=== PATIENT | male | born 1980 | race Two or more races ===

== ENCOUNTER 2021-10-09 11:27 | Emergency (ER) | payer OTHER, SELFPAY ==
--- NOTE | ~2021-10-09 | XR_ITS ---
EXAMINATION: XR CHEST CLINICAL INFORMATION: Chest pain COMPARISON: Previous chest x-ray January 2019 TECHNIQUE: Frontal view of the chest was obtained. FINDINGS: No significant abnormality is noted involving the heart, lungs, mediastinum, bony thorax or soft tissues. XR/XR chest 1V IMPRESSION: Unremarkable examination.
[2021-10-09 11:33] VITALS: BP 137/89; PULSE 84; RESP 18; TEMP 37.1; O2SAT 100; BMI 29.0
--- NOTE | 2021-10-09 11:37 | ECG_ITS ---
Test Reason : CP WHEN FULL Blood Pressure : / mmHG Vent. Rate : 093 BPM Atrial Rate : 093 BPM P-R Int : 142 ms QRS Dur : 080 ms QT Int : 338 ms P-R-T Axes : 075 073 057 degrees QTc Int : 420 ms Normal sinus rhythm Normal ECG When compared with ECG of 07-FEB-2009 21:50, ST elevation now present in Inferior leads Referred By: Generic ED Physician Electronically Signed By:AMELIE BARRERA MD
[2021-10-09 12:47] LABS: MANUAL DIFF FLAG NO
[2021-10-09 12:49] LABS: Basophils Percent Auto 0.2 % (0-2); Eosinophils Absolute Auto 0.1 X10*3/uL (0.0-0.4); Eosinophils Percent Auto 0.9 % (0-4); Hematocrit 45.7 % (42.0-52.0); Hemoglobin 15.3 g/dl (14.0-18.0); Imm Gran Abs Auto 0.02 X10*3/uL (0.00-0.03); Imm Gran Pct Auto 0.3 % (0.0-0.4); Lymphocytes Absolute Auto 1.9 X10*3/uL (1.2-4.9); Lymphocytes Percent Auto 28.2 % (20-40); Mean Corpuscular HGB Conc 33.5 g/dl (31.0-36.0); Mean Corpuscular Hemoglobin 29.2 pg (27.0-33.0); Mean Corpuscular Volume 87.2 fL (80.0-98.0); Mean Platelet Volume 9.2 fL (9.4-12.4); Monocytes Absolute Auto 0.5 X10*3/uL (0.1-1.2); Monocytes Percent Auto 7.5 % (2-11); Neutrophils Absolute Auto 4.1 x10*3/uL (2.0-8.3); Neutrophils Percent Auto 62.9 % (45-73); Platelet Count 281 X10*3/uL (160-400); Red Blood Count 5.24 X10*6/uL (4.60-5.80); Red Cell Distribution Width 12.7 % (11.0-16.0); White Blood Count 6.6 X10*3/uL (4.8-10.8)
[2021-10-09 13:07] LABS: Troponin-I High Sensitivity < 3.5 ng/L (<3.5-35.0)
[2021-10-09 13:43] LABS: Anion Gap 12 (12-20); Blood Urea Nitrogen 14 mg/dL (9-16); Calcium 10.1 mg/dL (8.4-10.2); Carbon Dioxide 27 mmol/L (22-29); Chloride 104 mmol/L (96-108); Creatinine Clr Calc Pharmacy 116.1; Estimated Glomerular Filt Rate > 60; Glucose Random 83 mg/dL (60-115); Potassium 4.7 mmol/L (3.3-5.1); Sodium 138 mmol/L (135-145)
--- NOTE | 2021-10-09 15:14 | ED_ITS ---
HPI - Arrhythmia/Palpitations General Chief Complaint: Arrhythmia/Palpitations Stated Complaint: Irregular heart beat while eating.. Time Seen by Provider: 10/09/21 15:14 Source: patient Mode of arrival: ambulatory Limitations: no limitations History of Present Illness HPI narrative: 41 years old male came in for evaluation of feeling palpitation after eating. 41-year-old male who just moved back to [place] from [place] after temporary moved to [place], while patient was in [place] and a been feeling ab dominal pain patient seek medical attention many times for further evaluation, was recommended for the patient to have colonoscopy. Patient lately been feeling palpitation and skipping heartbeat more after he is eating. No chest pain, no shortness of breath. Related Data Previous Rx's Medication Instructions Recorded citalopram 20 mg tablet 20 mg PO DAILY #30 tab 11/08/20 clonazepam 0.5 mg tablet 0.5 mg PO BID PRN #15 tab 11/08/20 dicyclomine 10 mg capsule 10 mg PO QID PRN #90 cap 10/03/21 fluticasone propionate 50 2 spray INTRANASAL DAILY 30 Days 10/03/21 mcg/actuation nasal #16 g spray,suspension (Allergy Relief (fluticasone)) loratadine 10 mg tablet (Allergy 10 mg PO DAILY #90 tab 10/03/21 Relief (loratadine)) Allergies Allergy/AdvReac Type Severity Reaction Status Date / Time diphenhydramine AdvReac Unknown UNKNOWN Verified 10/03/21 13:53 [From BENADRYL] Review of Systems Review of Systems: All other systems are reviewed and are negative Constitutional: Reports as per HPI and Reports no additional constitutional complaints Eyes: Reports as per HPI and Reports no additional eye complaints Reports system reviewed and no additional complaints, except as documented Cardiovascular: Reports as per HPI and Reports no additional cardiovascular complaints Respiratory: Reports as per HPI and Reports no additional respiratory complaints Gastrointestinal: Reports as per HPI and Reports no additional gastrointestinal complaints Genitourinary: Reports no additional female genitourinary complaints Musculoskeletal: Reports no additional musculoskeletal complaints Skin/Breast: Reports system reviewed and no additional complaints, except as docu Psychiatric: Reports no additional psychiatric complaints Endocrine: Reports no additional endocrine complaints Hematologic/Lymphatic: Reports no additional hematologic/lymphatic complaints Allergic/Immunologic: Reports no additional allergic/immunologic complaints Reports system reviewed and no additional complaints, except as documented and Reports Abnormal speech present PMFSH Past Medical History Medical History (Updated 10/09/21 @ 15:16 by Merritt An MD) Colon spasm High cholesterol Surgical History No pertinent past surgical history Family History Family History Father Sepsis Myocardial infarction Mother HTN (hypertension) Hypothyroidism Brother HTN (hypertension) Sister No problems noted. Sister No problems noted. Maternal Grandfather Heart problem Maternal Grandmother Heart problem Diabetes mellitus Paternal Grandmother No problems noted. Paternal Grandfather No problems noted. Social History Social History Advance Directives: No Advance Directives Information Provided: No Physical Exam Vital Signs: Vital Signs: Last Vital Signs Temp 98.7 F 10/09/21 11:33 Pulse 84 10/09/21 11:33 Resp 18 10/09/21 11:33 BP 137/89 10/09/21 11:33 Pulse Ox 100 10/09/21 11:33 BMI result Body Mass Index 29.0 Vital signs have been reviewed as appeared to be correct. Blood pressure normal. Heart rate normal. Respiration rate normal. Temperature normal. Oxygen saturation normal. Appearance: Alert. Oriented X3. No acute distress. Anxious Head: Normal external exam. Normocephalic. Atraumatic. No Wilburn signs noted. No raccoon eyes noted Eyes: PERRLA. EOMI. Conjunctiva and sclera normal. Eyelids normal. ENT: TM's Normal. Pharynx normal. Uvula midline. Moist mucous membranes. No trismus noted. No drooling noted. No muffled voice noted. Neck: Normal inspection. Neck supple. FROM. No adenopathy. Thyroid Normal. No meningeal signs. No neck mass noted. CVS: Normal heart rate and rhythm. Heart sound normal. No murmurs noted. Pulses normal throughout. Respiratory: No respiratory distress. Painless inspiration. Breath sounds normal. No wheezes/rales/rhonchi noted. Chest nontender. No accessory muscle usage noted or decreased air movement noted. Abdomen: Soft and nontender. Bowel sounds normal in all 4 quadrants. No distention noted. No organomegaly noted. No visible injury noted. Back: No CVA tenderness. Full range of motion noted. Skin: Skin warm and dry. Normal skin color. Normal skin turgor. No rashes/lesions/lacerations noted. Extremities: No lower extremity edema. Extremities exhibit normal range of motion. Extremities nontender. Neuro: Oriented X 3. Cranial nerve exam: II-XII are grossly intact No motor deficit. No sensory deficit. Reflexes normal. Course Course Course Narrative: Assessment and plan. 41 years old male came in with intermittent palpitation but no chest pain, patient has unremarkable labs and chest x-ray and EKG is not revealing, negative history of consuming caffeine. As discussed with the patient everything is unremarkable today need no acute em ergent medical intervention, but patient will need to follow-up with roofing sales representative for further evaluation and possible Holter monitor, patient also will be referred to GI as recommended to get colonoscopy done. MDM - Arrhythmia/Palpitations Medical Records Attestation: I reviewed the patient's medical records. Lab Data Attestation: I reviewed the patient's lab results. Result diagrams: 10/09/21 12:33 10/09/21 12:33 Labs: Lab Results 10/09/21 10/09/21 10/09/21 Range/Units 12:33 12:33 12:33 WBC 6.6 (4.8-10.8) X10*3/uL RBC 5.24 (4.60-5.80) X10*6/uL Hgb 15.3 (14.0-18.0) g/dl Hct 45.7 (42.0-52.0) % MCV 87.2 (80.0-98.0) fL MCH 29.2 (27.0-33.0) pg MCHC 33.5 (31.0-36.0) g/dl RDW 12.7 (11.0-16.0) % Plt Count 281 (160-400) X10*3/uL MPV 9.2 L (9.4-12.4) fL Immature Gran % (Auto) 0.3 (0.0-0.4) % Neut % (Auto) 62.9 (45-73) % Lymph % (Auto) 28.2 (20-40) % [place] % (Auto) 7.5 (2-11) % Eos % (Auto) 0.9 (0-4) % Baso % (Auto) 0.2 (0-2) % Lymph # (Auto) 1.9 (1.2-4.9) X10*3/uL [place] # (Auto) 0.5 (0.1-1.2) X10*3/uL Eos # (Auto) 0.1 (0.0-0.4) X10*3/uL Baso # (Auto) 0.0 (0.0-0.2) X10*3/uL Abs Immat Gran (auto) 0.02 (0.00-0.03) X10*3/uL Absolute Neuts (auto) 4.1 (2.0-8.3) x10*3/uL Absolute Nucleated RBC 0.000 (0.0-0.012) X10*3/uL Nucleated RBC % (auto) 0.0 (0.0-0.2) /100WBC Sodium 138 (135-145) mmol/L Potassium 4.7 (3.3-5.1) mmol/L Chloride 104 (96-108) mmol/L Carbon Dioxide 27 (22-29) mmol/L Anion Gap 12 (12-20) BUN 14 (9-16) mg/dL Creatinine 0.82 (0.5-1.4) mg/dL Estim Creat Clear Calc 116.1 Estimated GFR > 60 Random Glucose 83 (60-115) mg/dL Calcium 10.1 (8.4-10.2) mg/dL Troponin I High Sens < 3.5 (<3.5-35.0) ng/L Imaging Data Chest x-ray: Attestation: I personally reviewed and interpreted this imaging study as follows: Radiologist's impression: Unremarkable examination ECG Data Attestation: I personally reviewed and interpreted this ECG as follows: Interpretation: Normal sinus rhythm at 93 beats per minute, normal axis deviation, normal intervals, no ST-T changes. Discharge Plan Discharge Clinical Impression: Palpitations, Anxiety Patient Disposition: Home, Self-Care Instructions: Heart Palpitations (ED) Prescriptions: No Action clonazepam 0.5 mg tablet 0.5 mg PO BID PRN (Reason: Panick attacks) Qty: 15 0RF citalopram 20 mg tablet 20 mg PO DAILY Qty: 30 0RF dicyclomine 10 mg capsule 10 mg PO QID PRN (Reason: spasms) Qty: 90 0RF fluticasone propionate [Allergy Relief (fluticasone)] 50 mcg/actuation spray,suspension 2 spray intranasal DAILY 30 Days Qty: 16 5RF Rx Instructions: administer into each nostril loratadine [Allergy Relief (loratadine)] 10 mg tablet 10 mg PO DAILY Qty: 90 2RF Referrals: Bambi García MD [Physician] - Ángel White MD [Physician] -
== END 2021-10-09 15:21 | disposition home or self-care (01) ==
PROVIDERS: Emergency Provider Emergency Medicine; PCP Nurse Practitioner Family
DX: I49.9 Cardiac arrhythmia, unspecified (principal); R00.2 Palpitations; F41.1 Generalized anxiety disorder; F43.0 Acute stress reaction
CPT/HCPCS: 36415; 71045; 80048; 84484; 85025; 93005; 99283; 99284

== ENCOUNTER 2021-10-24 07:50 | Emergency (ER) | payer OTHER, SELFPAY ==
--- NOTE | ~2021-10-24 | XR_ITS ---
EXAMINATION: XR CHEST CLINICAL INFORMATION: Hoarseness, shortness of breath. COVID positive. COMPARISON: Chest radiograph dated from 10/09/2021. TECHNIQUE: PA view of the chest was obtained. FINDINGS: No significant abnormality is noted involving the heart, lungs, mediastinum, bony thorax or soft tissues. XR/XR chest 1V IMPRESSION: No significant abnormality. It is important to note that radiographs have decreased sensitivity for the detection of groundglass opacities, and therefore is complications from COVID are suspected correlation with a chest CT is recommended.
[2021-10-24 07:53] VITALS: BP 145/102; PULSE 102; RESP 17; TEMP 36.2; O2SAT 96; BMI 24.3
[2021-10-24 08:29] LABS: COVID-19 Test Positive (Negative); IDNOW Serial# 16C4AD1C
[2021-10-24 08:37] LABS: Influenza A Negative (Negative); Influenza B2 Negative (Negative)
--- NOTE | 2021-10-24 09:25 | ED.URI ---
HPI - URI/Sore Throat General Chief Complaint: Upper Respiratory Symptoms Stated Complaint: covid+(home test) - congestion- SOB Time Seen by Provider: 10/24/21 09:00 Source: patient Mode of arrival: ambulatory Limitations: no limitations History of Present Illness HPI Narrative: 41-year-old male who presents emergency department for evaluation of your eye symptoms and testing COVID positive at home . The patient states he has been sick for approximately 3 days. He states that he has a cough which is mainly nonproductive, he has had chest pain which is mild to moderate intensity, worse with taking deep breath, he states the pain is located throughout his anterior chest. He denied shortness of breath but he does have dyspnea on exertion. States that he had a sore throat but this resolved. He also complains of myalgias arthralgias. He had 1 day of diarrhea which this resolved. He states that his sister is COVID positive and his roommate is also COVID positive. He took a home COVID test today was positive. The patient has not been vaccinated against COVID 19. Related Data Previous Rx's Medication Instructions Recorded citalopram 20 mg tablet 20 mg PO DAILY #30 tab 11/08/20 clonazepam 0.5 mg tablet 0.5 mg PO BID PRN #15 tab 11/08/20 dicyclomine 10 mg capsule 10 mg PO QID PRN #90 cap 10/03/21 fluticasone propionate 50 2 spray INTRANASAL DAILY 30 Days 10/03/21 mcg/actuation nasal #16 g spray,suspension (Allergy Relief (fluticasone)) loratadine 10 mg tablet (Allergy 10 mg PO DAILY #90 tab 10/03/21 Relief (loratadine)) nirmatrelvir 300 mg (150 mg x 2 tab PO BID 5 Days #20 tab 10/24/21 2)-ritonavir 100 mg tablet (EUA) (Paxlovid 300 mg () Allergies Allergy/AdvReac Type Severity Reaction Status Date / Time diphenhydramine AdvReac Unknown UNKNOWN Verified 10/03/21 13:53 [From JUNE] Review of Systems Review of Systems: Yes all other systems are reviewed and are negative Neurologic: Reports Abnormal speech present [facility] Past Medical History [facility] Narrative: Social history: He denies tobacco, alcohol and drug use. Medical History Colon spasm High cholesterol Surgical History No pertinent past surgical history Family History Family History Father Sepsis Myocardial infarction Mother HTN (hypertension) Hypothyroidism Brother HTN (hypertension) Sister No problems noted. Sister No problems noted. Maternal Grandfather Heart problem Maternal Grandmother Heart problem Diabetes mellitus Paternal Grandmother No problems noted. Paternal Grandfather No problems noted. Social History Social History Advance Directives: No Advance Directives Information Provided: No Physical Exam Vital Signs: Vital Signs: Last Vital Signs Temp 97.1 F 10/24/21 07:53 Pulse 102 H 10/24/21 07:53 Resp 17 10/24/21 07:53 BP 145/102 H 10/24/21 07:53 Pulse Ox 96 10/24/21 07:53 BMI result Body Mass Index 24.3 Const: General: cooperative, no acute distress, well developed, alert and awake Orientation/consciousness: oriented to person HEENT: Head: Yes normal to inspection, Yes normocephalic and Yes atraumatic Ears: hearing grossly normal bilaterally General nose exam: Normal external nose present Face and sinus: Yes normal facial exam Mouth: Normal oral and palatal mucosa present, lip normal, tongue normal, oropharynx normal and moist mucous membranes Throat: Yes posterior oropharynx normal, Yes tonsils normal and Yes uvula midline Eyes: General: appearance normal, both eyes and all related structures Eyelids: Yes eyelids normal Conjunctivae: conjunctivae normal Sclerae: sclerae normal Corneas: corneas normal Pupils: Equal, round and reactive pupils present Neck: Neck: Yes normal visual inspection, Yes no lymphadenopathy, Yes trachea midline and Yes supple Thyroid: Thyroid normal Lymphatic: no lymphadenopathy noted Chest: Chest palpation & inspection: normal inspection of the chest and normal palpation of entire chest wall Resp: Effort & Inspection: normal respiratory effort and able to speak in complete sentences Auscultation: clear to auscultation bilaterally Cardio: Rate: regular rate Rhythm: regular rhythm Heart sounds: S1 normal heart sound present, S2 normal heart sound present and no murmurs GI: Inspection: Yes normal to inspection Palpation (GI): Soft to palpation, nontender and No hepatosplenomegaly present Auscultation: normal bowel sounds : General: Yes no CVA tenderness Back/Spine/Pelvis: Back: no CVA tenderness Thoracic/Lumbar Spine: thoracic and lumbar spine normal to inspection Skin: General skin exam: no rashes or lesions noted, no erythema and no jaundice Lesions: no lesions Rashes: no rashes Trauma: no lacerations or abrasions Wounds: no wounds Neuro: General: oriented to person, moves all extremities and no focal motor deficits Cranial nerves: Yes Equal, round and reactive pupils present Cognition (Neuro): normal cognition Speech: Abnormal speech present Motor exam (neuro): Motor abnormalities not present Extrem: General: Yes normal to inspection, Yes no pedal edema and Yes no calf tenderness Right upper extremity: normal to inspection Left upper extremity: normal to inspection Right lower extremity: normal to inspection Left lower extremity: normal to inspection Psych: Appearance: grossly normal Mental Status: mental status grossly normal Speech and movement: Normal speech and movement present Affect: normal affect Attitude: cooperative Thought process: Normal thought process present Insight: Good insight present (Psych) Course Course Course Narrative: 41-year-old male who presents emergency department for evaluation upper respiratory tract infection symptoms and a positive COVID-19 test at home. Initial vital signs revealed an elevated blood pressure 140/102, pulse elevated 102 otherwise were unremarkable. Patient's exam was unremarkable with a normal lung exam. COVID-19 test was positive. Patient's chest x-ray revealed no pneumonia. This patient has not been vaccinated for COVID-19 therefore is at higher risk of severe illness from COVID-19 pneumonia. The patient was prescribed Paxlovid. He was advised to stop his fluticason while taking this drug. He was given printed and verbal instructions and discharged home MDM - URI/Sore Throat Lab Data Labs: Lab Results 10/24/21 10/24/21 Range/Units 07:58 07:58 COVID-19 ([facility]) Positive A (Negative) COVID-19 Clin Com See Note Influenza Type A ([facility]) Negative (Negative) Influenza Type B ([facility]ISTERIO) Negative (Negative) Influenza A & B Note See Note Discharge Plan Discharge Clinical Impression: COVID-19 virus infection Patient Disposition: Home, Self-Care Instructions: COVID-19 (Coronavirus Disease 2019) (ED) Additional Instructions: Your chest x-ray was normal, you do do not have pneumonia at this time. Your COVID-19 test was positive. I am prescribing Paxlovid for your COVID infection Take this medication up today. Stop your other medications while taking Paxlovid Follow-up with your doctor in 2 days. Please return to the emergency department if your symptoms get worse or if you develop any symptoms that are concerning to you. Prescriptions: New Paxlovid (EUA) 150 mg x 2- 100 mg tablet 2 tab PO BID 5 Days Qty: 20 0RF Rx Instructions: 2 tabs PO; No Action clonazepam 0.5 mg tablet 0.5 mg PO BID PRN (Reason: Panick attacks) Qty: 15 0RF citalopram 20 mg tablet 20 mg PO DAILY Qty: 30 0RF dicyclomine 10 mg capsule 10 mg PO QID PRN (Reason: spasms) Qty: 90 0RF fluticasone propionate [Allergy Relief (fluticasone)] 50 mcg/actuation spray,suspension 2 spray intranasal DAILY 30 Days Qty: 16 5RF Rx Instructions: administer into each nostril loratadine [Allergy Relief (loratadine)] 10 mg tablet 10 mg PO DAILY Qty: 90 2RF
--- NOTE | 2021-10-24 10:25 | PC.NURSE ---
PT EVALUATED BY LUANN SONI PLAN IS FOR DC HOME. PT AWAKE, ALERT AND ORIENTED X 3. RESP EVEN, EASY AND UNLABORED. DENIES N/V. NO DISTRESS NOTED.
== END 2021-10-24 10:30 | disposition home or self-care (01) ==
PROVIDERS: Emergency Provider Emergency Medicine Emergency Medical Services; PCP Nurse Practitioner Family
DX: U07.1 COVID-19 (principal); R05.9 Cough, unspecified; R06.02 Shortness of breath; Z79.899 Other long term (current) drug therapy
CPT/HCPCS: 36415; 71045; 80048; 84484; 85025; 87502; 87635; 93005; 99283

== ENCOUNTER 2021-10-24 21:36 | Emergency (ER) | payer OTHER, SELFPAY ==
--- NOTE | 2021-10-24 | ECG_ITS ---
Test Reason : PALPITATIONS Blood Pressure : / mmHG Vent. Rate : 079 BPM Atrial Rate : 079 BPM P-R Int : 162 ms QRS Dur : 088 ms QT Int : 382 ms P-R-T Axes : 063 074 045 degrees QTc Int : 438 ms Sinus rhythm with occasional Premature ventricular complexes Otherwise normal ECG When compared with ECG of 09-OCT-2021 12:23, Premature ventricular complexes are now Present Referred By: Generic ED Physician Electronically Signed By:Joshua Mcelroy
--- NOTE | ~2021-10-24 | XR_ITS ---
EXAMINATION: XR CHEST CLINICAL INFORMATION: Covid positive, palpitations COMPARISON: Chest x-ray from earlier today TECHNIQUE: Frontal view of the chest was obtained. FINDINGS: Lung volumes are symmetric. No focal consolidation is seen. No evidence of pneumothorax, pleural effusion, or pulmonary edema. The cardiomediastinal contour is unremarkable. No acute osseous findings are seen. XR/XR chest 1V IMPRESSION: No acute cardiopulmonary findings.
[2021-10-24 22:44] VITALS: BP 146/85; PULSE 84; RESP 18; TEMP 36.8; O2SAT 97; BMI 24.7
[2021-10-24 23:06] LABS: Basophils Percent Auto 0.1 % (0-2); Eosinophils Absolute Auto 0.1 X10*3/uL (0.0-0.4); Eosinophils Percent Auto 1.6 % (0-4); Hematocrit 41.4 % (42.0-52.0); Imm Gran Abs Auto 0.04 X10*3/uL (0.00-0.03); Imm Gran Pct Auto 0.5 % (0.0-0.4); Lymphocytes Absolute Auto 2.4 X10*3/uL (1.2-4.9); Lymphocytes Percent Auto 31.9 % (20-40); MANUAL DIFF FLAG NO; Mean Corpuscular HGB Conc 33.8 g/dl (31.0-36.0); Mean Corpuscular Hemoglobin 29.6 pg (27.0-33.0); Mean Corpuscular Volume 87.5 fL (80.0-98.0); Monocytes Absolute Auto 0.6 X10*3/uL (0.1-1.2); Neutrophils Absolute Auto 4.3 x10*3/uL (2.0-8.3); Neutrophils Percent Auto 57.9 % (45-73); Platelet Count 233 X10*3/uL (160-400); Red Blood Count 4.73 X10*6/uL (4.60-5.80); White Blood Count 7.4 X10*3/uL (4.8-10.8)
[2021-10-24 23:21] LABS: Anion Gap 12 (12-20); Blood Urea Nitrogen 14 mg/dL (9-16); Calcium 9.6 mg/dL (8.4-10.2); Carbon Dioxide 27 mmol/L (22-29); Chloride 104 mmol/L (96-108); Creatinine Clr Calc Pharmacy 106.7; Estimated Glomerular Filt Rate > 60; Glucose Random 136 mg/dL (60-115); Potassium 3.9 mmol/L (3.3-5.1); Sodium 139 mmol/L (135-145)
[2021-10-24 23:25] LABS: Troponin-I High Sensitivity < 3.5 ng/L (<3.5-35.0)
--- NOTE | 2021-10-25 05:06 | ED_ITS ---
HPI - General Adult General Chief complaint: Arrhythmia/Palpitations Stated complaint: rapid heart rate Covid+ Time Seen by Provider: 10/25/21 05:06 Source: patient Mode of arrival: ambulatory Limitations: no limitations History of Present Illness HPI narrative: patient with symptoms for 5 days, turned positive 2 days ago. Patient had been mucinex for multiple days. Patient was put on paxlovid 2 days ago. he is here because he was getting abdominal pain and diarrhea and palpitations. Onset (ago): day(s) Severity: mild Pain Consistency: intermittent Associated symptoms: denies other symptoms Treatments prior to arrival: none Related Data Previous Rx's Medication Instructions Recorded citalopram 20 mg tablet 20 mg PO DAILY #30 tab 11/08/20 clonazepam 0.5 mg tablet 0.5 mg PO BID PRN #15 tab 11/08/20 dicyclomine 10 mg capsule 10 mg PO QID PRN #90 cap 10/03/21 fluticasone propionate 50 2 spray INTRANASAL DAILY 30 Days 10/03/21 mcg/actuation nasal #16 g spray,suspension (Allergy Relief (fluticasone)) loratadine 10 mg tablet (Allergy 10 mg PO DAILY #90 tab 10/03/21 Relief (loratadine)) nirmatrelvir 300 mg (150 mg x 2 tab PO BID 5 Days #20 tab 10/24/21 2)-ritonavir 100 mg tablet (EUA) (Paxlovid 300 mg () Allergies Allergy/AdvReac Type Severity Reaction Status Date / Time diphenhydramine AdvReac Unknown UNKNOWN Verified 10/03/21 13:53 [From ELSAL] Review of Systems Constitutional: Constitutional: Reports no additional constitutional complai nts Eyes: Eyes: Reports no additional eye complaints ENT: Denies dizziness Cardiovascular: Cardiovascular: Reports no additional cardiovascular complaints Respiratory: Respiratory: Reports as per HPI Gastrointestinal: Gastrointestinal: Reports no additional gastrointestinal complaints Musculoskeletal: Musculoskeletal: Reports no additional musculoskeletal complaints Integumentary/Breasts: Skin/Breast: Denies rash Neurologic: Reports system reviewed and no additional complaints, except as documented, Denies dizziness and Denies Sensory deficit (Neuro) Psychiatric: Psychiatric: Denies anxiety PMFSH Past Medical History Medical History Colon spasm High cholesterol Surgical History No pertinent past surgical history Family History Family History Father Sepsis Myocardial infarction Mother HTN (hypertension) Hypothyroidism Brother HTN (hypertension) Sister No problems noted. Sister No problems noted. Maternal Grandfather Heart problem Maternal Grandmother Heart problem Diabetes mellitus Paternal Grandmother No problems noted. Paternal Grandfather No problems noted. Social History Social History Advance Directives: No Advance Directives Information Provided: No Physical Exam ED Vital Signs: Vital Signs - 24 hr 10/24/21 22:44 Temperature 98.2 F Pulse Rate 84 Respiratory Rate 18 Blood Pressure 146/85 H Pulse Oximetry 97 BMI result Body Mass Index 24.7 Const General: healthy appearing Nutritional Appearance: average body habitus Orientation/consciousness: oriented to person and patient oriented x3 Limitations: no limitations HENMT Head: Yes normal to inspection Ears: external ears normal General nose exam: Normal external nose present Mouth: Normal oral and palatal mucosa present and oropharynx normal Throat: Yes posterior oropharynx normal Eyes General: appearance normal, both eyes and all related structures Neck Neck: Yes normal visual inspection Chest Chest palpation & inspection: normal inspection of the chest Resp Auscultation: clear to auscultation bilaterally Cardio Jugular venous distension: no JVD Rate: regular rate Rhythm: regular rhythm Heart sounds: S1 normal heart sound present and S2 normal heart sound present GI Inspection: Yes normal to inspection Palpation (GI): Soft to palpation, nontender and No hepatosplenomegaly present Auscultation: normal bowel sounds General: Yes no CVA tenderness Back/Spine/Pelvis Back: no CVA tenderness Skin General skin exam: no rashes or lesions noted Neuro General: oriented to person and patient oriented x3 Cranial nerves: Yes CN's II-XII intact bilaterally Motor exam (neuro): 5/5 motor strength present throughout Sensory Exam: No Sensory deficit (Neuro) Extrem General: Yes normal to inspection Psych Appearance: grossly normal Course Reevaluation(s) Reevaluation #1: patient looks well, he has isolated PVC on EKG, labs negative will dc homw Time: 05:25 Medical Decision Making Lab Data Result diagrams: 10/24/21 23:01 10/24/21 23:01 Labs: Lab Results 10/24/21 10/24/21 10/24/21 Range/Units 23:01 23:01 23:01 WBC 7.4 (4.8-10.8) X10*3/uL RBC 4.73 (4.60-5.80) X10*6/uL Hgb 14.0 (14.0-18.0) g/dl Hct 41.4 L (42.0-52.0) % MCV 87.5 (80.0-98.0) fL MCH 29.6 (27.0-33.0) pg MCHC 33.8 (31.0-36.0) g/dl RDW 13.0 (11.0-16.0) % Plt Count 233 (160-400) X10*3/uL MPV 9.0 L (9.4-12.4) fL Immature Gran % (Auto) 0.5 H (0.0-0.4) % Neut % (Auto) 57.9 (45-73) % Lymph % (Auto) 31.9 (20-40) % [place] % (Auto) 8.0 (2-11) % Eos % (Auto) 1.6 (0-4) % Baso % (Auto) 0.1 (0-2) % Lymph # (Auto) 2.4 (1.2-4.9) X10*3/uL [place] # (Auto) 0.6 (0.1-1.2) X10*3/uL Eos # (Auto) 0.1 (0.0-0.4) X10*3/uL Baso # (Auto) 0.0 (0.0-0.2) X10*3/uL Abs Immat Gran (auto) 0.04 H (0.00-0.03) X10*3/uL Absolute Neuts (auto) 4.3 (2.0-8.3) x10*3/uL Absolute Nucleated RBC 0.000 (0.0-0.012) X10*3/uL Nucleated RBC % (auto) 0.0 (0.0-0.2) /100WBC Sodium 139 (135-145) mmol/L Potassium 3.9 (3.3-5.1) mmol/L Chloride 104 (96-108) mmol/L Carbon Dioxide 27 (22-29) mmol/L Anion Gap 12 (12-20) BUN 14 (9-16) mg/dL Creatinine 0.98 (0.5-1.4) mg/dL Estim Creat Clear Calc 106.7 Estimated GFR > 60 Random Glucose 136 H D (60-115) mg/dL Calcium 9.6 (8.4-10.2) mg/dL Troponin I High Sens < 3.5 (<3.5-35.0) ng/L Discharge Plan Discharge Clinical Impression: COVID-19 virus infection, Palpitations, Ventricular premature beats Patient Disposition: Home, Self-Care Instructions: COVID-19 (Coronavirus Disease 2019) (ED), Heart Palpitations (ED), Premature Ventricular Contractions (ED) Prescriptions: No Action Paxlovid (EUA) 150 mg x 2- 100 mg tablet 2 tab PO BID 5 Days Qty: 20 0RF Rx Instructions: 2 tabs PO; clonazepam 0.5 mg tablet 0.5 mg PO BID PRN (Reason: Panick attacks) Qty: 15 0RF citalopram 20 mg tablet 20 mg PO DAILY Qty: 30 0RF dicyclomine 10 mg capsule 10 mg PO QID PRN (Reason: spasms) Qty: 90 0RF fluticasone propionate [Allergy Relief (fluticasone)] 50 mcg/actuation spray ,suspension 2 spray intranasal DAILY 30 Days Qty: 16 5RF Rx Instructions: administer into each nostril loratadine [Allergy Relief (loratadine)] 10 mg tablet 10 mg PO DAILY Qty: 90 2RF Referrals: Bala Roman, [employer] [Primary Care Provider] - 1 week
--- NOTE | 2021-10-25 05:23 | PC.NURSE ---
at bedside for primary eval.
== END 2021-10-25 05:34 | disposition home or self-care (01) ==
PROVIDERS: Emergency Provider Emergency Medicine; PCP Nurse Practitioner Family
DX: U07.1 COVID-19 (principal); R00.2 Palpitations; I49.3 Ventricular premature depolarization; Z79.899 Other long term (current) drug therapy
CPT/HCPCS: 36415; 71045; 80048; 84484; 85025; 93005; 99282; 99283

== ENCOUNTER 2021-10-30 10:22 | Outpatient (REF) | payer OTHER, SELFPAY ==
[2021-10-30 10:49] LABS: COVID-19 Test Negative (Negative)
[2021-10-31 14:11] LABS: H Pylori Breath Test Negative (Negative)
== END 2021-10-30 10:23 | disposition home or self-care (01) ==
LOC: HO.LAB 10:22
PROVIDERS: Physician Assistant; Visit Provider Internal Medicine
DX: Z20.822 Contact with and (suspected) exposure to COVID-19 (principal); R14.0 Abdominal distension (gaseous); R00.2 Palpitations; R19.4 Change in bowel habit; R10.9 Unspecified abdominal pain; F41.0 Panic disorder [episodic paroxysmal anxiety]
CPT/HCPCS: 36415; 83013; 87635; 99202; 99211; C9803

== ENCOUNTER 2021-11-20 08:32 | Outpatient (REF) | payer OTHER, SELFPAY ==
--- NOTE | ~2021-11-20 | US_ITS ---
EXAMINATION: US ABDOMEN COMPLETE CLINICAL INFORMATION: Abdominal distension (gaseous) and abdominal pain. COMPARISON: None TECHNIQUE: Real-time imaging of the abdominal viscera. FINDINGS: PANCREAS: Normal. ABDOMINAL AORTA: The proximal, mid, and distal segments are normal in caliber. INFERIOR VENA CAVA: Visualized portions are normal. LIVER: Normal. The liver is normal in size. The liver contour is normal. Parenchymal echogenicity is normal. No focal hepatic lesion. There is no intrahepatic biliary duct dilatation seen. GALLBLADDER: There is a nonmobile small polyp measuring 0.2 x 0.2 cm. The gallbladder wall thickness is 0.2 cm. There is no echogenic sludge, wall thickening or pericholecystic fluid. No echogenic gallstone seen either. COMMON BILE DUCT: Normal in caliber measuring 0.3 cm in diameter. RIGHT KIDNEY: There is an echogenic stone measuring 0.3 x 0.4 x 0.4 cm. No additional echogenic stone seen. There is no caliectasis. No hydronephrosis or focal parenchymal lesions. The kidney measures 12.5 cm in maximum dimension. LEFT KIDNEY: Normal. No hydronephrosis. No renal calculi or focal parenchymal lesions. The kidney measures 11.2 cm in maximum dimension. SPLEEN: Normal. The spleen measures 11.7 cm in maximum dimension. FREE FLUID: None. US/US abdomen complete IMPRESSION: Small nonmobile gallbladder polyp measuring 2 mm. Echogenic right renal calculi measuring 4 mm without caliectasis. Rest of the abdominal ultrasound is unremarkable.
== END 2021-11-20 08:33 | disposition home or self-care (01) ==
LOC: HO.HMGCX 08:32
PROVIDERS: PCP Nurse Practitioner Family; Visit Provider Physician Assistant
DX: R10.9 Unspecified abdominal pain (principal); R14.0 Abdominal distension (gaseous)
CPT/HCPCS: 76700

== ENCOUNTER → 2021-11-22 07:34 | Outpatient (REF) | payer OTHER, SELFPAY ==
--- NOTE | 2021-11-22 07:37 | CA_ITS ---
Transthoracic Echocardiogram Patient (Last, First, Middle): Rola Ocampo, Gender: Male Date of : 1980 Age: 41 Procedure Date: 11/22/2021 Procedure Type: Transthoracic Echocardiogram Location: OP Height: 180.34 cm Weight: 75.75 kg BSA: 1.95 m2 Heart Rate: bpm BP: 120 / 75 mmHg Manufacturing Maintenance Technician: HOLDEN Strauss MD: Charlette Cole BOX TOE MAKERLane Meat Washer: Manoj Hatch MD Symptoms: R00.2 - Palpitations Study Quality: Fair ECG Rhythm: Sinus Conclusions: - Essentially normal study Findings Left Ventricle Normal left ventricular size, thickness, and systolic function. The visually estimated ejection fraction is between 60-65%. Spectral Doppler is indicative of a normal filling pattern. Right Ventricle Normal right ventricular cavity size and systolic function. Atria Both atria are normal in size. There is no evidence of interatrial shunt. Aortic Valve Normal aortic valve structure and function. There is no aortic valve stenosis. There is no aortic valve regurgitation. Mitral Valve Normal mitral valve structure and function. There is trace mitral valve regurgitation. There is no mitral valve stenosis. Pulmonic Valve The pulmonic valve is likely normal. Tricuspid Valve Normal tricuspid valve structure. There is trace tricuspid valve regurgitation. The right ventricular systolic pressure is normal. The right ventricular systolic pressure is 18 mmHg. Normal right atrial pressure. There is no evidence of pulmonary hypertension. Great Vessels All visible segments of the aorta are normal in size. The pulmonary artery was not well visualized. Venous The inferior vena cava is normal in size and collapses greater than 50% with inspiration. Pericardium/Pleural There is no evidence of pericardial effusion. Prior Study Comparison No prior study available for comparison. Measurements 2D Linear Measurements IVSd: 0.91 0.6-0.9/0.6-1.0 cm LVIDd: 4.66 3.9-5.3/4.2-5.9 cm LVIDd Index: 2.39 2.4-3.2/2.2-3.1 cm/m2 LVIDs: 3.14 2.0-3.6 cm LVPWd: 0.88 0.7-1.1 cm LA Diam: 3.60 2.7-3.8/3.0-4.0 cm LAIDs Index: 1.85 1.5-2.3 cm/m2 LV Mass: 173.96 67-162/88-224 g LV Mass Index: 89.21 43-95/49-115 g/m2 LVOT Diam: 2.20 3.0+(-)1.3 cm 2D Systolic Function EF 4C: 62.60 >55% EF 2C: 55.60 >55% Mitral Valve MV Pk E: 0.60 MV PK A: 0.47 MV Decel Time: 439.00 E/A: 1.30 E'Lateral: 9.36 E'Medial: 6.53 E/E' Med: 9.20 E/E' Lat: 6.40 PHT: 129.00 MVA PHT: 1.71 Decel [place]: 1.37 Aortic Valve AoV Pk Janes: 1.20 AoV Mn Janes: 0.93 AoV VTI: 0.25 AoV Pk Grad: 6.00 Aov Mn Grad: 4.00 KENN Cont.VTI: 3.06 LVOT LVOT Pk Janes: 0.92 LVOT Mn Janes: 0.62 LVOT VTI: 0.20 LVOT Pk Grad: 3.00 LVOT Mn Grad: 2.00 LVOT Diam: 2.20 LVOT Area: 3.80 Diastolic Function MV Pk E: 0.60 MV Pk A: 0.47 E/A: 1.30 E'Medial: 6.53 E/E' Med: 9.20 E' Laterial: 9.36 E/E' Lat: 6.40 Right Ventricle TAPSE (mm): 19.10 TVS' Janes: 10.40 Tricuspid Valve TR Pk Janes: 1.91 TR Pk Grad: 15.00 RA Press: 3.00 RVSP: 18.00 Great Vessels Aorta Sinus of Valsalva: 3.13 2.0-3.[address] [place]: 3.16 1.7-3.4 cm Ao Asc: 3.30 2.1-3.4 cm Ao Arch: 2.50 Updated in Other Vendor System with Status of Final Manoj Hatch MD electronically signed on 11/22/2021 12:41:07 PM with status of Final
== END ==
LOC: HO.CARD 07:34
PROVIDERS: Visit Provider Nurse Practitioner Family
DX: R00.2 Palpitations (principal)
CPT/HCPCS: 93306

== ENCOUNTER → 2021-11-23 20:31 | Outpatient (REF) | payer OTHER, SELFPAY | LOC: HO.CARD 20:31 | PROVIDERS: Visit Provider Nurse Practitioner Family | DX: Z13.89 Encounter for screening for other disorder (principal) ==

== ENCOUNTER → 2021-11-27 13:47 | Outpatient (BNVA) | payer OTHER, SELFPAY | PROVIDERS: PCP Nurse Practitioner Family; Referring Provider Nurse Practitioner Family; Visit Provider Physician Assistant | DX: R14.0 Abdominal distension (gaseous) (principal); K82.4 Cholesterolosis of gallbladder; F41.0 Panic disorder [episodic paroxysmal anxiety] | CPT/HCPCS: 99212 ==

== ENCOUNTER → 2021-12-17 13:02 | Outpatient (REF) | payer OTHER, SELFPAY ==
--- NOTE | 2021-12-17 13:07 | ECG_ITS ---
Hook-up date: 2021-12-17 12:21:00 Duration: 25:00:00 Test Indications: PALPITATIONS Medications: [id number] QRS complexes 1 Ventricular ectopics which represent <1 % of total QRS comp. 3 Supraventricular ectopics which represent <1 % of total QRS comp. * Paced QRS complexs which represent % of total QRS comp. VENTRICULAR ECTOPY 1 Isolated 0 Bigeminal Cycles 0 Couplets 0 Runs 0 Beats in Runs * Beats LONGEST at * BPM at :: -- * Beats FASTEST at * BPM at :: -- SUPRAVENTRICULAR ECTOPY 3 Isolated 0 Couplets 0 Runs 0 Beats in Runs * Beats LONGEST at * BPM at :: -- * Beats FASTEST at * BPM at :: -- HEART RATES 44 MIN at 06:10:19 2021-12-18 70 AVG 127 MAX at 12:54:54 2021-12-17 LONGEST RR 1.4480 secs at 05:02:33 2021-12-18 S-T LEVELS Channel 1 - 128 mm at 12:21:00 2021-12-17 - 128 mm at 12:21:00 2021-12-17 Channel 2 - 128 mm at 12:21:00 2021-12-17 - 128 mm at 12:21:00 2021-12-17 Channel 3 - 128 mm at 03:14:01 -- - 128 mm at 03:14:01 Basic rhythm Normal sinus rhythm No long pause or profound bradycardia No dangerous dysrhythm periods Patient reported symptoms correlated with NSR Referred By: Charlette Cole Overread By: AMELIE BARRERA MD
== END ==
LOC: HO.CARD 13:02
PROVIDERS: Visit Provider Nurse Practitioner Family
DX: R00.2 Palpitations (principal); U07.1 COVID-19
CPT/HCPCS: 93226

== ENCOUNTER 2022-01-27 21:58 | Emergency (ER) | payer OTHER, SELFPAY ==
--- NOTE | ~2022-01-27 | CT_ITS ---
EXAMINATION: NONCONTRAST HEAD CT NONCONTRAST MAXILLOFACIAL CT INDICATION INFORMATION: Head/eye injury COMPARISON: 10/24/2007 TECHNIQUE: Separate noncontrast CT examinations of the head and maxillofacial bones were performed. Coronal and sagittal images were created for each examination at the technologist workstation. DOSE LOWERING TECHNIQUES: This CT examination was performed using dose optimization techniques as appropriate, variously including the following: - Automated exposure control - Adjustment of mA and/or kV according to patient size (this includes techniques or standardized protocols for targeted exams were dose is matched to indication/reason for exam; i.e. extremities or head) - Use of iterative reconstruction technique DLP: 954 mGy-cm FINDINGS: Head: There is no evidence of acute intracranial hemorrhage or territorial infarction. No abnormal mass-effect or midline shift is seen. Kel[place] to white matter differentiation is well preserved. No extra-axial fluid collections are identified. The ventricles are normal in size. There is no abnormal attenuation within the brain parenchyma. The osseous structures and soft tissues are normal. The mastoid air cells are well aerated. Maxillofacial: No acute maxillofacial fractures are seen. Left periorbital soft tissue swelling is noted. The frontal, maxillary, ethmoid, and sphenoid sinuses are well aerated. There is leftward deviation of nasal septum. The mandibular condyles are well-seated in the condylar fossa. The orbits otherwise demonstrate a normal appearance bilaterally. The globes are intact, and there are no suspicious findings to suggest retrobulbar hemorrhage. CT/CT facial bones wo con IMPRESSION: No acute intracranial findings. Left periorbital soft tissue swelling without associated fracture.
--- NOTE | ~2022-01-27 | CT_ITS ---
EXAMINATION: NONCONTRAST HEAD CT NONCONTRAST MAXILLOFACIAL CT INDICATION INFORMATION: Head/eye injury COMPARISON: 10/24/2007 TECHNIQUE: Separate noncontrast CT examinations of the head and maxillofacial bones were performed. Coronal and sagittal images were created for each examination at the technologist workstation. DOSE LOWERING TECHNIQUES: This CT examination was performed using dose optimization techniques as appropriate, variously including the following: - Automated exposure control - Adjustment of mA and/or kV according to patient size (this includes techniques or standardized protocols for targeted exams were dose is matched to indication/reason for exam; i.e. extremities or head) - Use of iterative reconstruction technique DLP: 954 mGy-cm FINDINGS: Head: There is no evidence of acute intracranial hemorrhage or territorial infarction. No abnormal mass-effect or midline shift is seen. Kelsey to white matter differentiation is well preserved. No extra-axial fluid collections are identified. The ventricles are normal in size. There is no abnormal attenuation within the brain parenchyma. The osseous structures and soft tissues are normal. The mastoid air cells are well aerated. Maxillofacial: No acute maxillofacial fractures are seen. Left periorbital soft tissue swelling is noted. The frontal, maxillary, ethmoid, and sphenoid sinuses are well aerated. There is leftward deviation of nasal septum. The mandibular condyles are well-seated in the condylar fossa. The orbits otherwise demonstrate a normal appearance bilaterally. The globes are intact, and there are no suspicious findings to suggest retrobulbar hemorrhage. CT/CT head/brain wo con IMPRESSION: No acute intracranial findings. Left periorbital soft tissue swelling without associated fracture.
[2022-01-27 22:08] VITALS: BP 132/84; PULSE 88; RESP 16; TEMP 37; O2SAT 100; BMI 24.4
--- NOTE | 2022-01-27 23:40 | ED_ITS ---
HPI - Wound/Laceration General Chief Complaint: Wound/Laceration Stated Complaint: hit head with tool Time Seen by Provider: 01/27/22 23:32 Source: patient Mode of arrival: ambulatory Limitations: no limitations History of Present Illness HPI narrative: Patient comes to the emergency room complaining of an injury to the left upper eyelid. Patient states that he was at work, patient was trying to drill into a piece of wood above his head. Patient removed the drill, seemed that the drill slipped when he was trying to pull it out, and hit the upper eyelid of his eye exteriorly. Patient denies any visual changes. Patient has a small laceration to the upper eyelid. Patient did not lose consciousness, no blood thinners Related Data Home Medications Medication Instructions Recorded Confirmed loratadine 10 mg tablet 10 mg PO DAILY 11/27/21 11/27/21 Previous Rx's Medication Instructions Recorded dicyclomine 10 mg capsule 10 mg PO QID PRN spasms #90 caps 10/03/21 methylcellulose (laxative) 500 mg 500 mg PO TID #90 tabs 11/27/21 tablet (Citrucel) Allergies Allergy/AdvReac Type Severity Reaction Status Date / Time diphenhydramine AdvReac Unknown UNKNOWN Verified 01/27/22 22:08 [From JUNE] Review of Systems Review of Systems: Constitutional : No Weight loss, No Fever, No Chills, No Night Sweats, No Fatigue, No Malaise ENT/Mouth : No Hearing loss, No Ear Pain, No Nasal Congestion, No Sinus Pain, No Hoarseness, No sore throat, No Rhinorrhea, No Swallowing Difficulty Eyes: No Eye Pain, No Swelling, No Redness, No Foreign Body, No Discharge, No Vision Changes Cardiovascular : No Chest Pain, No SOB, No Dyspnea on Exertion, No Orthopnea, No Edema, No Palpitations Respiratory : No Cough, No Sputum, No Wheezing, No Smoke Exposure, No Dyspnea Gastrointestinal : No Nausea, No Vomiting, No Diarrhea, No Constipation, No abdominal Pain, No Hematochezia, No Melena Genitourinary : no irregular bleeding, No Dysuria, No Urinary Frequency, No Hematuria, No Urinary Incontinence, No Urgency, No Flank Pain, No Urinary Flow Changes, No Hesitancy Musculoskeletal : No joint pain, No Myalgias, No Joint Swelling Skin : Ecchymosis and laceration to the upper eyelid on the left side Neuro : No Weakness, No Numbness, No Paresthesias, No Loss of Consciousness, No Dizziness, No Headache Psych : No Anxiety/Panic, No Depression, No SI/HI/AH/VH, No Social Issues, Heme/Lymph: No Bruising, No Bleeding,No Lymphadenopathy Endocrine : No Polyuria, No Polydipsia, No Temperature Intolerance [facility] Past Medical History Medical History (Updated 01/28/22 @ 01:37 by Kennedi Claros MD) Colon spasm Depression High cholesterol Panic attack Surgical History History of appendectomy History of hernia repair Family History Family History Father Sepsis Myocardial infarction Mother HTN (hypertension) Hypothyroidism Brother HTN (hypertension) Sister No problems noted. Sister No problems noted. Maternal Grandfather Heart problem Maternal Grandmother Heart problem Diabetes mellitus Paternal Grandmother No problems noted. Paternal Grandfather No problems noted. Social History Social History Household Members: None Household Members Other:: - process divorce Alcohol intake: former Year quit: 2019 Patient Tobacco Use Status: Former Tobacco user Years Smoked: 7 +/- Advance Directives: No Advance Directives Information Provided: Yes Current occupational status: unemployed Physical Exam Vital Signs: Vital Signs: Last Vital Signs Temp 98.6 F 01/27/22 22:08 Pulse 88 01/27/22 22:08 Resp 16 01/27/22 22:08 BP 132/84 01/27/22 22:08 Pulse Ox 100 01/27/22 22:08 O2 Del Method 01/27/22 22:08 BMI result Body Mass Index 24.4 Const: Other: Appearance: Alert. Oriented X3. No acute distress. Eyes: Pupils equal, round and reactive to light. There is mild swelling to the upper eyelid exteriorly on the left side, there is a 0.5 cm superficial lacer ation to the eyelid. Patient is able to move the eyes in all directions with normal range of motion and painlessly. Muscular entrapment not suspected ENT: Pharynx normal. Neck: Normal inspection. Neck supple. No lymph nodes noted. No crepitus CVS: Normal heart rate and rhythm. Pulses normal. Normal S1 and S2 Respiratory: No respiratory distress. Breath sounds normal. No Wheezing. No rales Abdomen: Soft and nontender. No rigidity. No distention. Skin: Skin warm and dry. Normal skin color. Normal skin turgor. Extremities: No lower extremity edema. No Lacerations. No Rash Neuro: Oriented X 3. No motor deficit. No sensory deficit. Moving all extremities. No slurred speech. CN 2 through 12 grossly intact Psych: calm, cooperative, normal affect Course Course Course Narrative: Head and facial bones CT pending 01:35: CT scan of the head and facial bones is negative. Patient has no neck pain. Topical Exofin was applied to the outer eyelid, bleeding controlled MDM - Wound/Laceration Imaging Data Head and facial bone CT: Radiologist's impression: Head: There is no evidence of acute intracranial hemorrhage or territorial infarction. No abnormal mass-effect or midline shift is seen. Kelsey to white matter differentiation is well preserved. No extra-axial fluid collections are identified. The ventricles are normal in size. There is no abnormal attenuation within the brain parenchyma. The osseous structures and soft tissues are normal. The mastoid air cells are well aerated. Maxillofacial: No acute maxillofacial fractures are seen. Left periorbital soft tissue swelling is noted. The frontal, maxillary, ethmoid, and sphenoid sinuses are well aerated. There is leftward deviation of nasal septum. The mandibular condyles are well-seated in the condylar fossa. The orbits otherwise demonstrate a normal appearance bilaterally. The globes are intact, and there are no suspicious findings to suggest retrobulbar hemorrhage. CT/CT facial bones wo con IMPRESSION: No acute intracranial findings. Left periorbital soft tissue swelling without associated fracture. Discharge Plan Discharge Clinical Impression: Laceration Patient Disposition: Home, Self-Care Instructions: Laceration (ED) Additional Instructions: Please follow-up with your primary care physician tomorrow. If you have any worsening or new symptoms, please return to the emergency room or call 911 Prescriptions: No Action dicyclomine 10 mg capsule 10 mg PO QID PRN (Reason: spasms) Qty: 90 0RF loratadine 10 mg tablet 10 mg PO DAILY Citrucel 500 mg tablet 500 mg PO TID Qty: 90 5RF
[2022-01-28 03:20] VITALS: BP 120/77; PULSE 70; RESP 16; O2SAT 98
== END 2022-01-28 03:24 | disposition home or self-care (01) ==
PROVIDERS: Emergency Provider Emergency Medicine; PCP Nurse Practitioner Family
DX: S01.112A Laceration without foreign body of left eyelid and periocular area, initial encounter (principal); R51.9 Headache, unspecified; W26.9XXA Contact with unspecified sharp object(s), initial encounter; Y93.9 Activity, unspecified; Y92.9 Unspecified place or not applicable; Y99.0 Civilian activity done for income or pay; Z79.899 Other long term (current) drug therapy; Z87.891 Personal history of nicotine dependence
CPT/HCPCS: 70450; 70486; 99284

== ENCOUNTER 2022-02-19 08:27 | Outpatient (REF) | payer OTHER, SELFPAY ==
[2022-02-19 11:46] LABS: Appearance Urine Clear; Color Urine Yellow; Glucose Urine UA Negative (Negative); Leukocyte Esterase Urine Negative (Negative); Nitrite Urine Negative (Negative); Specific Gravity - Urine <= 1.005 (1.005-1.025); Urine Blood Negative (Negative); Urine Ketones Negative (Negative); Urine Protein Negative (Neg-Trace)
[2022-02-19 11:51] LABS: MANUAL DIFF FLAG NO
[2022-02-19 12:07] LABS: Basophils Percent Auto 0.4 % (0-2); Eosinophils Absolute Auto 0.1 X10*3/uL (0.0-0.4); Hematocrit 48.7 % (42.0-52.0); Imm Gran Abs Auto 0.03 X10*3/uL (0.00-0.03); Imm Gran Pct Auto 0.4 % (0.0-0.4); Lymphocytes Absolute Auto 2.7 X10*3/uL (1.2-4.9); Lymphocytes Percent Auto 34.2 % (20-40); Mean Corpuscular HGB Conc 32.9 g/dl (31.0-36.0); Mean Corpuscular Hemoglobin 29.2 pg (27.0-33.0); Mean Corpuscular Volume 88.9 fL (80.0-98.0); Mean Platelet Volume 9.7 fL (9.4-12.4); Monocytes Absolute Auto 0.6 X10*3/uL (0.1-1.2); Monocytes Percent Auto 7.3 % (2-11); Neutrophils Absolute Auto 4.5 x10*3/uL (2.0-8.3); Neutrophils Percent Auto 56.7 % (45-73); Platelet Count 308 X10*3/uL (160-400); Red Blood Count 5.48 X10*6/uL (4.60-5.80); Red Cell Distribution Width 12.5 % (11.0-16.0); White Blood Count 7.9 X10*3/uL (4.8-10.8)
[2022-02-19 12:26] LABS: Alanine Aminotransferase 25 U/L (0-40); Albumin Level 4.8 g/dL (3.5-5.0); Alkaline Phosphatase 78 U/L (39-117); Anion Gap 14 (12-20); Aspartate Amino Transferase 20 U/L (5-37); Bilirubin Total 0.6 mg/dL (0.0-1.0); Blood Urea Nitrogen 17 mg/dL (9-16); Carbon Dioxide 27 mmol/L (22-29); Chloride 103 mmol/L (96-108); Cholesterol 257 mg/dL; Estimated Glomerular Filt Rate > 60; Glucose Fasting 97 mg/dL (60-99); HDL Cholesterol 40 mg/dL; LDL Cholesterol Calculated 187 mg/dl; Potassium 4.3 mmol/L (3.3-5.1); Sodium 140 mmol/L (135-145); Total Protein 8.1 g/dL (6.5-8.0); Triglycerides 151 mg/dL
[2022-02-19 12:38] LABS: Vitamin D 25-OH Total 40.2 ng/mL (>30)
[2022-02-19 13:03] LABS: Folate 12.8 ng/mL (> or = 4.0); Vitamin B12 818 pg/mL (200-900)
== END 2022-02-19 08:28 | disposition home or self-care (01) ==
LOC: HO.HMGCLDS 08:27
PROVIDERS: PCP Nurse Practitioner Family; Visit Provider Nurse Practitioner Family
DX: Z00.00 Encounter for general adult medical examination without abnormal findings (principal); E56.9 Vitamin deficiency, unspecified
CPT/HCPCS: 36415; 80053; 80061; 81003; 82306; 82607; 82746; 84443; 85025

== ENCOUNTER → 2022-02-26 13:26 | Outpatient (BNVA) | payer OTHER, SELFPAY | PROVIDERS: PCP Nurse Practitioner Family; Referring Provider Nurse Practitioner Family; Visit Provider Physician Assistant | DX: K58.9 Irritable bowel syndrome, unspecified (principal) | CPT/HCPCS: 99212 ==

== ENCOUNTER 2022-06-20 05:09 | Emergency (ER) | payer OTHER, SELFPAY ==
[2022-06-20 05:12] VITALS: BP 131/89; PULSE 70; RESP 16; TEMP 36.1; O2SAT 99; BMI 26.1
--- NOTE | 2022-06-20 05:25 | PC.NURSE ---
this rn assumed care of pt @ 0512. VSS at this time. pt changed in hospital gown. pt resting comfortably on stretcher. Dr Dumont made aware of pt at this time. pt awaiting to be seen by ED provider
--- NOTE | 2022-06-20 05:27 | ED_ITS ---
HPI - General Adult General Chief complaint: Headache Stated complaint: headache, high bp Time Seen by Provider: 06/20/22 05:27 Source: patient Mode of arrival: ambulatory Limitations: no limitations History of Present Illness HPI narrative: Patient woke up from sleep with slight headache in the front checked the blood pressure was 160/95 got worried as has a strong family history of hypertension repeat blood pressure in the ER was 122/80 no nausea vomiting chest pain or palpitation Related Data Previous Rx's Medication Instructions Recorded rosuvastatin 5 mg tablet (Crestor) 5 mg PO BEDTIME #90 tabs 02/21/22 Allergies Allergy/AdvReac Type Severity Reaction Status Date / Time diphenhydramine AdvReac Unknown UNKNOWN Verified 02/26/22 13:28 [From JUNE] Review of Systems Review of Systems: Yes all other systems are reviewed and are negative [facility] Past Medical History Medical History Colon spasm Depression High cholesterol Panic attack Surgical History History of appendectomy History of hernia repair Family History Family History Father Sepsis Myocardial infarction Mother HTN (hypertension) Hypothyroidism Brother HTN (hypertension) Sister No problems noted. Sister No problems noted. Maternal Grandfather Heart problem Maternal Grandmother Heart problem Diabetes mellitus Paternal Grandmother No problems noted. Paternal Grandfather No problems noted. Social History Social History Household Members: None Household Members Other:: - process divorce Housing: House Alcohol intake: former Year quit: 2019 Patient Tobacco Use Status: Former Tobacco user Years Smoked: 7 +/- Smoked in Last 30 Days: No e-Cigarette/Vaping Use: Never Used Second Hand Smoke Exposure: No Use of substances other than those prescribed or required for medical reasons: No Advance Directives: No Advance Directives Information Provided: Yes Current occupational status: unemployed Cognitive needs: No Hearing needs: No Vision needs: No Physical Exam ED Vital Signs: Vital Signs - 24 hr 06/20/22 05:12 Temperature 96.9 F Pulse Rate 70 Respiratory Rate 16 Blood Pressure 131/89 Pulse Oximetry 99 Oxygen Delivery Method Room Air BMI result Body Mass Index 26.1 Appearance: Alert. Oriented X3. No acute distress. Anxious Eyes: PERRLA, No Nystagmus ENT: Pharynx normal. Oral Mucosa moist Neck: Normal inspection. Neck supple. CVS: Normal heart rate and rhythm. Pulses normal. Respiratory: No respiratory distress. Equal air entry bilateral, no wheezing/rales/rhonchi Abdomen: Soft and nontender. Bowel sounds are present, no mass palpable, no CVA tenderness Skin: Skin warm and dry. Normal skin color. Normal skin turgor. Extremities: No lower extremity edema. No calf tenderness Neuro: Oriented X 3. No motor deficit. Medical Decision Making Medical Decision Making MDM Narrative: Patient with anxiety clinically with headache noticed to have slight high blood pressure at home repeat blood pressure was normal patient advise to follow with PCP Discharge Plan Discharge Clinical Impression: Elevated blood pressure reading Patient Disposition: Home, Self-Care Instructions: Hypertension (ED) Additional Instructions: Your blood pressure seems to be normal 122/80 it could be because of headache you had transient high blood pressure Follow-up with PCP Prescriptions: No Action rosuvastatin [Crestor] 5 mg tablet 5 mg PO BEDTIME Qty: 90 0RF
--- NOTE | 2022-06-20 05:44 | PC.NURSE ---
pt ambulatory at discharge. skin pwd. bp 122/80 HR 82. pt provided with discharge packet. pt verbalized understanding of discharge plan
== END 2022-06-20 05:45 | disposition home or self-care (01) ==
PROVIDERS: Emergency Provider Internal Medicine; PCP Nurse Practitioner Family
DX: R51.9 Headache, unspecified (principal); I10 Essential (primary) hypertension; Z87.891 Personal history of nicotine dependence
CPT/HCPCS: 99282; 99284

== ENCOUNTER → 2022-07-03 14:31 | Outpatient (BNVA) | payer OTHER, SELFPAY | PROVIDERS: PCP Nurse Practitioner Family; Referring Provider Nurse Practitioner Family; Visit Provider Nurse Practitioner Family | DX: R00.2 Palpitations (principal) | CPT/HCPCS: 93005; 99212 ==

== ENCOUNTER → 2022-07-18 12:01 | Outpatient (REF) | payer OTHER, SELFPAY ==
--- NOTE | 2022-07-18 12:04 | HM_ITS ---
Conclusion: 1. Patient was monitored for total period of 6 days 2. Baseline was normal sinus rhythm with average heart rate of 75 beats per minute 3. No significant pauses or bradycardia noted 4. Very rare ectopy noted with total of 34 PACs and 4 PVCs noted throughout the entire. Accounting for less than 0.01% of total beats 5. Patient reported 5 events, with reported symptoms of irregular heartbeat correlating with either PACs or PVCs MTDD
== END ==
LOC: HO.CARD 12:01
PROVIDERS: Visit Provider Nurse Practitioner Family
DX: I49.3 Ventricular premature depolarization (principal); R00.2 Palpitations; K40.20 Bilateral inguinal hernia, without obstruction or gangrene, not specified as recurrent
CPT/HCPCS: 93242; 99202

== ENCOUNTER → 2022-07-23 13:09 | Outpatient (BNVA) | payer OTHER, SELFPAY | PROVIDERS: PCP Nurse Practitioner Family; Visit Provider Physician Assistant | DX: K58.9 Irritable bowel syndrome, unspecified (principal) | CPT/HCPCS: 99212 ==

== ENCOUNTER → 2022-08-07 08:05 | Outpatient (BNVA) | payer OTHER, SELFPAY | PROVIDERS: PCP Nurse Practitioner Family; Visit Provider Nurse Practitioner Family | DX: G47.19 Other hypersomnia (principal); G25.81 Restless legs syndrome; G47.52 REM sleep behavior disorder; R06.83 Snoring | CPT/HCPCS: 99202 ==

== ENCOUNTER 2022-08-21 05:13 | Emergency (ER) | payer OTHER, SELFPAY ==
--- NOTE | 2022-08-21 | ECG_ITS ---
Test Reason : SHORTNESS OF BREATH Blood Pressure : / mmHG Vent. Rate : 083 BPM Atrial Rate : 083 BPM P-R Int : 156 ms QRS Dur : 088 ms QT Int : 374 ms P-R-T Axes : 054 072 032 degrees QTc Int : 439 ms Normal sinus rhythm Normal ECG When compared with ECG of 24-OCT-2021 22:47, Premature ventricular complexes are no longer Present Referred By: Generic ED Physician Electronically Signed By:AMELIE BARRERA MD
[2022-08-21 05:22] VITALS: BMI 28.0
[2022-08-21 05:27] VITALS: BP 136/87; PULSE 71; RESP 18; TEMP 36.4; O2SAT 100
[2022-08-21 06:00] LABS: MANUAL DIFF FLAG NO
[2022-08-21 06:03] LABS: Basophils Percent Auto 0.2 % (0-2); Eosinophils Absolute Auto 0.1 X10*3/uL (0.0-0.4); Eosinophils Percent Auto 0.9 % (0-4); Hematocrit 43.9 % (42.0-52.0); Hemoglobin 14.9 g/dl (14.0-18.0); Imm Gran Abs Auto 0.04 X10*3/uL (0.00-0.03); Imm Gran Pct Auto 0.5 % (0.0-0.4); Lymphocytes Absolute Auto 2.7 X10*3/uL (1.2-4.9); Lymphocytes Percent Auto 33.2 % (20-40); Mean Corpuscular HGB Conc 33.9 g/dl (31.0-36.0); Mean Corpuscular Hemoglobin 29.2 pg (27.0-33.0); Mean Corpuscular Volume 85.9 fL (80.0-98.0); Mean Platelet Volume 9.1 fL (9.4-12.4); Monocytes Absolute Auto 0.7 X10*3/uL (0.1-1.2); Monocytes Percent Auto 8.2 % (2-11); Neutrophils Absolute Auto 4.7 x10*3/uL (2.0-8.3); Platelet Count 268 X10*3/uL (160-400); Red Blood Count 5.11 X10*6/uL (4.60-5.80); Red Cell Distribution Width 13.2 % (11.0-16.0); White Blood Count 8.2 X10*3/uL (4.8-10.8)
[2022-08-21 06:15] LABS: Anion Gap 15 (12-20); Blood Urea Nitrogen 22 mg/dL (9-16); Calcium 9.2 mg/dL (8.4-10.2); Carbon Dioxide 23 mmol/L (22-29); Chloride 105 mmol/L (96-108); Creatinine Clr Calc Pharmacy 116.1; Estimated Glomerular Filt Rate > 60; Glucose Random 105 mg/dL (60-115); Potassium 3.9 mmol/L (3.3-5.1); Sodium 139 mmol/L (135-145)
[2022-08-21 06:25] LABS: Troponin-I High Sensitivity < 3.5 ng/L (<3.5-35.0)
[2022-08-21 06:35] VITALS: BP 124/76; PULSE 66; RESP 13; O2SAT 99
--- NOTE | 2022-08-21 07:17 | ED.GENADULT ---
HPI - General Adult General Chief complaint: General Medical Stated complaint: dizziness, confusion Time Seen by Provider: 08/21/22 06:49 Source: patient Mode of arrival: ambulatory Limitations: no limitations History of Present Illness HPI narrative: A 42-year-old male came in for evaluation of racing heart and feeling shortness of breath with dizziness. Patient woke up from sleep feeling anxious, feeling tingling all over his body, palpitation, lightheadedness, and shortness or breath. No fever, no chills. Related Data Home Medications Medication Instructions Recorded Confirmed No Known Home Meds 07/22/22 07/22/22 Allergies Allergy/AdvReac Type Severity Reaction Status Date / Time diphenhydramine AdvReac Unknown UNKNOWN Verified 08/07/22 08:09 [From JUNE] Review of Systems Review of Systems: All other systems are reviewed and are negative Constitutional: Reports as per HPI and Reports no additional constitutional complaints Eyes: Reports as per HPI and Reports no additional eye complaints Reports system reviewed and no additional complaints, except as documented Cardiovascular: Reports as per HPI and Reports no additional cardiovascular complaints Respiratory: Reports as per HPI and Reports no additional respiratory complaints Gastrointestinal: Reports as per HPI and Reports no additional gastrointestinal complaints Genitourinary: Reports no additional female genitourinary complaints Musculoskeletal: Reports no additional musculoskeletal complaints Skin/Breast: Reports system reviewed and no additional complaints, except as docu Psychiatric: Reports no additional psychiatric complaints Endocrine: Reports no additional endocrine complaints Hematologic/Lymphatic: Reports no additional hematologic/lymphatic complaints Allergic/Immunologic: Reports no additional allergic/immunologic complaints Reports system reviewed and no additional complaints, except as documented and Reports Abnormal speech present [facility] Past Medical History Medical History Colon spasm Depression High cholesterol Panic attack Surgical History History of appendectomy History of bilateral inguinal hernia repair (01/26/18) Family History Family History Father Sepsis Myocardial infarction Mother HTN (hypertension) Hypothyroidism Brother HTN (hypertension) Sister Fibromyalgia Sister No problems noted. Maternal Grandfather Heart problem Maternal Grandmother Heart problem Diabetes mellitus Paternal Grandmother No problems noted. Paternal Grandfather No problems noted. Social History Social History Household Members: None Household Members Other:: - process divorce Housing: House Alcohol intake: never Patient Tobacco Use Status: Former Tobacco user Years Smoked: 7 +/- Smoked in Last 30 Days: No e-Cigarette/Vaping Use: Never Used Second Hand Smoke Exposure: No Use of substances other than those prescribed or required for medical reasons: No Advance Directives: No Advance Directives Information Provided: Yes Current occupational status: unemployed Cognitive needs: No Hearing needs: No Vision needs: No Physical Exam ED Vital Signs: Vital Signs - 24 hr 08/21/22 05:27 08/21/22 06:35 Temperature 97.6 F Pulse Rate 71 66 Respiratory Rate 18 13 Blood Pressure 136/87 124/76 Pulse Oximetry 100 99 Oxygen Delivery Method Room Air Room Air BMI result Body Mass Index 28.0 Vital signs have been reviewed as appeared to be correct. Blood pressure normal. Heart rate normal. Respiration rate normal. Temperature normal. Oxygen saturation normal. Appearance: Alert. Oriented X3. No acute distress. Head: Normal external exam. Normocephalic. Atraumatic. No Wilburn signs noted. No raccoon eyes noted Eyes: PERRLA. EOMI. Conjunctiva and sclera normal. Eyelids normal. ENT: TM's Normal. Pharynx normal. Uvula midline. Moist mucous membranes. No trismus noted. No drooling noted. No muffled voice noted. Neck: Normal inspection. Neck supple. FROM. No adenopathy. Thyroid Normal. No meningeal signs. No neck mass noted. CVS: Normal heart rate and rhythm. Heart sound normal. No murmurs noted. Pulses normal throughout. Respiratory: No respiratory distress. Painless inspiration. Breath sounds normal. No wheezes/rales/rhonchi noted. Chest nontender. No accessory muscle usage noted or decreased air movement noted. Abdomen: Soft and nontender. Bowel sounds normal in all 4 quadrants. No distention noted. No organomegaly noted. No visible injury noted. Back: No CVA tenderness. Full range of motion noted. Skin: Skin warm and dry. Normal skin color. Normal skin turgor. No rashes/lesions/lacerations noted. Extremities: No lower extremity edema. Extremities exhibit normal range of motion. Extremities nontender. Neuro: Oriented X 3. Cranial nerve exam: II-XII are grossly intact No motor deficit. No sensory deficit. Reflexes normal. Course Course Course Narrative: 42-year-old male came in with symptoms of anxiety, patient has unremarkable workup in the emergency department today, patient now is asymptomatic. Vital signs stable, will discharge to follow-up with PCP. Medical Decision Making Differential Diagnosis Differential Diagnoses: The differential diagnosis associated with the presentation includes (ACS, dehydration, electrolyte disturbance, anemia, anxiety.) Lab Data MDM Lab Attestation statement: I reviewed the patient's lab results. 08/21/22 05:51 08/21/22 05:51 Labs: Lab Results 08/21/22 08/21/22 08/21/22 Range/Units 05:51 05:51 05:51 WBC 8.2 (4.8-10.8) X10*3/uL RBC 5.11 (4.60-5.80) X10*6/uL Hgb 14.9 (14.0-18.0) g/dl Hct 43.9 (42.0-52.0) % MCV 85.9 (80.0-98.0) fL MCH 29.2 (27.0-33.0) pg MCHC 33.9 (31.0-36.0) g/dl RDW 13.2 (11.0-16.0) % Plt Count 268 (160-400) X10*3/uL MPV 9.1 L (9.4-12.4) fL Immature Gran % (Auto) 0.5 H (0.0-0.4) % Neut % (Auto) 57.0 (45-73) % Lymph % (Auto) 33.2 (20-40) % Gillespie % (Auto) 8.2 (2-11) % Eos % (Auto) 0.9 (0-4) % Baso % (Auto) 0.2 (0-2) % Lymph # (Auto) 2.7 (1.2-4.9) X10*3/uL Gillespie # (Auto) 0.7 (0.1-1.2) X10*3/uL Eos # (Auto) 0.1 (0.0-0.4) X10*3/uL Baso # (Auto) 0.0 (0.0-0.2) X10*3/uL Abs Immat Gran (auto) 0.04 H (0.00-0.03) X10*3/uL Absolute Neuts (auto) 4.7 (2.0-8.3) x10*3/uL Absolute Nucleated RBC 0.000 (0.0-0.012) X10*3/uL Nucleated RBC % (auto) 0.0 (0.0-0.2) /100WBC Sodium 139 (135-145) mmol/L Potassium 3.9 (3.3-5.1) mmol/L Chloride 105 (96-108) mmol/L Carbon Dioxide 23 (22-29) mmol/L Anion Gap 15 (12-20) BUN 22 H (9-16) mg/dL Creatinine 0.91 (0.5-1.4) mg/dL Estim Creat Clear Calc 116.1 Estimated GFR > 60 Random Glucose 105 (60-115) mg/dL Calcium 9.2 D (8.4-10.2) mg/dL Troponin I High Sens < 3.5 (<3.5-35.0) ng/L Independent Interpretation I performed an independent interpretation of an: EKG (Normal sinus rhythm at 83 beats per minutes, normal axis deviation, normal intervals, no ST-T changes.) Radiology Impression Discussion of test interpretation with radiology: I have reviewed the radiologist's reading. Discharge Plan Discharge Clinical Impression: Anxiety Patient Disposition: Home, Self-Care Instructions: Anxiety (ED) Prescriptions: No Action No Known Home Meds Referrals: Physician,Unknown J [Primary Care Provider] -
== END 2022-08-21 10:15 | disposition home or self-care (01) ==
PROVIDERS: Emergency Provider Emergency Medicine
DX: F41.9 Anxiety disorder, unspecified (principal); E78.5 Hyperlipidemia, unspecified
CPT/HCPCS: 36415; 80048; 84484; 85025; 93005; 99283; 99284

== ENCOUNTER → 2022-09-08 18:30 | Outpatient (REF) | payer OTHER, SELFPAY | LOC: HO.SL 18:30 | PROVIDERS: PCP Nurse Practitioner Family; Visit Provider Nurse Practitioner Family | DX: G47.33 Obstructive sleep apnea (adult) (pediatric) (principal) | CPT/HCPCS: 95810 ==

== ENCOUNTER 2022-10-24 09:00 | Outpatient (RCR) | payer OTHER, SELFPAY ==
--- NOTE | 2022-10-18 08:42 | MHC.PT.EP ---
[facility] [place] Office [place] Office [place] Office [address] [phone] F: [phone] F: [phone] F: [phone] F: [phone] Physical Therapy Plan of Care Date of Evaluation: Date of Surgery: Diagnosis: LBP Assessment: Pt is a 42 y/o male referred to PT for eval and treat of LBP resulting in decreased tolerance and ability for sitting for duration, lifting objects of weight, standing for duration, as well as disturbed sleep secondary to decreased trunk ROM, decreased core strength, increased R LE neural tissue tension, T and L spine hypo mobility, decreased R > L hip strength and pain. Pt is deemed an appropriate candidate to receive skilled PT services to address their physical impairments in order to improve their functional ability. Frequency and Duration: The patient will be seen 2 x / wk x 5 wks. Short Term Goals: initiate home program. R foot Sx abolished. Detention Goals: I with home program. Pt will be able to sit > 1 hour with managed Sx; initial: < 10 min. Improve core strength to at least good +; initial Fair +. Improve Chely by at least 9 points in order to demonstrate improved function. Treatment Plan: Modalities to reduce pain, spasms and effusion. Manual therapy to restore motion and function. Therapeutic exercise to improve strength and flexibility. Neuromuscular re-education for posture and balance. Therapeutic activities to return to functional activities of daily living. Electronically signed by: Hair Contreras PT. Please sign and return to therapist. Thank you for your referral.
== END 2022-11-04 12:55 | disposition home or self-care (01) ==
LOC: HO.PTCHIC 09:00
PROVIDERS: PCP Hospitalist; Visit Provider Nurse Practitioner Family
DX: M54.50 Low back pain, unspecified (principal)
CPT/HCPCS: 97110; 97161

== ENCOUNTER 2023-05-12 09:42 | Outpatient (AMB) | payer OTHER, SELFPAY ==
--- NOTE | 2023-05-12 10:34 | MHC.OFFWIV ---
Intake Vital Signs 05/12/23 10:37 Height 5 ft 9 in Weight 191 lb BMI 28.2 BP 122/76 Blood Pressure Location Rt brachial Position Sitting Pulse 78 Pulse Source Pulse Oximeter Temp 97.9 F Temp Source Temporal Artery Scan Pulse Oximetry (%) 97 Oxygen Delivery Method Room Air Intake Visit Reasons: Est/high bp/ kind of shakey/[phone] Intake Note: pt is here for c.o elevated bp at home, anxiety Patient Tobacco Use Status: Former Tobacco user Allergies diphenhydramine [From BENADRYL] Adverse Reaction (Unknown, Verified 05/12/23 10:38) UNKNOWN Do you need a note to return to daycare/school/sports/work: Yes HPI Est/high bp/ kind of shakey/[phone] HPI Details This is a 42 year old patient who presents today with a number of complaints. He reports the following: irregular heartbeat and palpitations over the last several days, multiple instances of passing out over the last couple of months and waking up sometimes up to an hour later. He is unsure if he is falling asleep or losing consciousness during these times. He denies any chest pain, dizziness, weakness. He states he has had a cardiac workup previously which was all normal. He is concerned over his diet, his weight, his blood pressure which has been fluctuating and was 155/102 this morning when checked at home. No documented history of hypertension. He also checks his blood sugar and reports sometimes it is in the 300s . He does not have a history of DM and does not follow any sort of schedule for checking blood sugar. He also is reporting sinus and facial pressure. He denies any cough or shortness of breath. [facility] Medical History Colon spasm High cholesterol Depression Panic attack Surgical History History of bilateral inguinal hernia repair (01/26/18) History of appendectomy Family History Father Sepsis Myocardial infarction Mother HTN (hypertension) Hypothyroidism Brother HTN (hypertension) Sister Fibromyalgia Sister No problems noted. Maternal Grandfather Heart problem Maternal Grandmother Heart problem Diabetes mellitus Paternal Grandmother No problems noted. Paternal Grandfather No problems noted. Social History Household Members: None Household Members Other:: - process divorce Housing: House Alcohol intake: never Patient Tobacco Use Status: Former Tobacco user Years Smoked: 7 +/- e-Cigarette/Vaping Use: Never Used Second Hand Smoke Exposure: No Current occupational status: unemployed Cognitive needs: No Hearing needs: No Vision needs: No Review of Systems Const All systems reviewed & are unremarkable except as noted in HPI and below Physical Exam Vital Signs: Last Vital Signs Temp 97.9 F 05/12/23 10:37 Pulse 78 05/12/23 10:37 BP 122/76 05/12/23 10:37 Pulse Ox 97 05/12/23 10:37 Oxygen Delivery Method Room Air 05/12/23 10:37 BMI result Body Mass Index 28.2 Const General: cooperative, healthy appearing, comfortable, no acute distress and anxious Orientation/consciousness: patient oriented x3 HEENT Head: Yes normal to inspection and Yes normocephalic Ears: hearing grossly normal bilaterally, external ears normal and TM's normal bilaterally General nose exam: Normal external nose present and Normal nasal mucous membranes and turbinates present Face and sinus: Yes sinus tenderness (frontal and maxillary) Mouth: Normal oral and palatal mucosa present Throat: Yes posterior oropharynx normal Eyes General: appearance normal, both eyes and all related structures Neck Neck: Yes no lymphadenopathy and Yes no JVD Resp Effort & Inspection: normal respiratory effort and able to speak in complete sentences Auscultation: clear to auscultation bilaterally Cardio Palpation: normal PMI Rate: regular rate Rhythm: regular rhythm Heart sounds: S1 normal heart sound present and S2 normal heart sound present Peripheral pulses: Peripheral pulses 2+ throughout Skin General skin exam: no rashes or lesions noted Neuro General: patient oriented x3, gait normal and no focal motor deficits Extrem General: Yes capillary refill normal and Yes no clubbing, cyanosis or edema Psych Appearance: grossly normal Mental Status: mental status grossly normal Affect: Anxious affect present Attitude: cooperative Thought process: Tangential thought process present Insight: Fair insight present (Psych) Assessment & Plan Assessment & Plan (1) Intermittent palpitations: Code(s): R00.2 - Palpitations Plan: EKG in the office was normal. Sinus rhythm 67. On exam, no abnormal findings were identified. His report of several instances of passing out over the last couple of months is concerning, and I discussed workup in the ED for this. He declines this at this time however states he will go to ED if this starts to occur more frequently. I will obtain some labs CBC, BMP fasting at this time. Patient's thought process was extremely tangential during this visit. He had numerous complaints he wished to have addressed during visit but then would go off-topic and start discussing another concern prior to finishing initial thought(s). He seemed hyperfixated on his blood sugar and blood pressure, despite no history of DM or HTN. We discussed importance of f/u with PCP for ongoing health maintenance. It does not appear he has any upcoming PCP visits so I encouraged him to stop at the medical front desk coordinator prior to leaving and schedule appt. He states he will do so. I informed him that we will call him with lab results once these are available. We also discussed again importance of going to ED for evaluation of possible LOC episodes. Patient verbalizes understanding and states he will f/u with PCP and go to ED if needed. (2) Acute sinusitis: Code(s): J01.90 - Acute sinusitis, unspecified Qualifiers: Sinusitis location: maxillary Recurrence: non-recurrent Qualified Code(s): J01.00 - Acute maxillary sinusitis, unspecified Plan: I will start him on a z-pack for his sinusitis as this has helped him previously for similar symptoms. We reviewed indications, use, possible s/e and to return to the clinic if he does not improve with tx. Orders: Orders Complete Blood Count Auto Diff 05/12/23 R00.2 - Palpitations, R42 - Dizziness and giddiness AMB EKG-In Office 05/12/23 R00.2 - Palpitations Comprehensive Farnam. Panel Fast 05/12/23 R00.2 - Palpitations, R42 - Dizziness and giddiness Medications: New azithromycin For 250 mg dose pack: take 500 mg today (day 1), then 250 mg for 4 days (days 2-5) PO 6 tabs 0RF J01.90 - Acute sinusitis, unspecified Coding Level of Care Code Est Pt Level 4 (61380) Diagnoses Intermittent palpitations R00.2 Acute non-recurrent maxillary sinusitis J01.00 Sinusitis location: maxillary Recurrence: non-recurrent Time Spent (min) 25
[2023-05-12 10:37] VITALS: BP 122/76; PULSE 78; TEMP 36.6; O2SAT 97; BMI 28.2
== END 2023-05-12 11:55 | disposition home or self-care (01) ==
PROVIDERS: PCP Nurse Practitioner Family; Visit Provider Nurse Practitioner Family
DX: R00.2 Palpitations (principal); J01.00 Acute maxillary sinusitis, unspecified
CPT/HCPCS: 93000; 99214

== ENCOUNTER 2023-05-12 11:54 | Outpatient (REF) | payer OTHER, SELFPAY ==
[2023-05-12 13:17] LABS: MANUAL DIFF FLAG NO
[2023-05-12 13:45] LABS: Basophils Percent Auto 0.3 % (0-2); Eosinophils Absolute Auto 0.1 X10*3/uL (0.0-0.4); Eosinophils Percent Auto 1.1 % (0-4); Hematocrit 44.7 % (42.0-52.0); Hemoglobin 14.8 g/dl (14.0-18.0); Imm Gran Abs Auto 0.03 X10*3/uL (0.00-0.03); Imm Gran Pct Auto 0.4 % (0.0-0.4); Lymphocytes Absolute Auto 2.2 X10*3/uL (1.2-4.9); Mean Corpuscular HGB Conc 33.1 g/dl (31.0-36.0); Mean Corpuscular Hemoglobin 29.2 pg (27.0-33.0); Mean Corpuscular Volume 88.2 fL (80.0-98.0); Mean Platelet Volume 9.7 fL (9.4-12.4); Monocytes Absolute Auto 0.5 X10*3/uL (0.1-1.2); Monocytes Percent Auto 6.5 % (2-11); Neutrophils Absolute Auto 4.5 x10*3/uL (2.0-8.3); Neutrophils Percent Auto 61.7 % (45-73); Platelet Count 310 X10*3/uL (160-400); Red Blood Count 5.07 X10*6/uL (4.60-5.80); Red Cell Distribution Width 13.2 % (11.0-16.0); White Blood Count 7.3 X10*3/uL (4.8-10.8)
[2023-05-12 14:12] LABS: Alanine Aminotransferase 24 U/L (0-40); Albumin Level 4.5 g/dL (3.5-5.0); Alkaline Phosphatase 62 U/L (39-117); Anion Gap 11 (12-20); Aspartate Amino Transferase 29 U/L (5-37); Bilirubin Total 0.5 mg/dL (0.0-1.0); Blood Urea Nitrogen 12 mg/dL (9-16); Calcium 9.4 mg/dL (8.4-10.2); Carbon Dioxide 25 mmol/L (22-29); Chloride 107 mmol/L (96-108); Estimated Glomerular Filt Rate > 60; Glucose Fasting 98 mg/dL (60-99); Sodium 139 mmol/L (135-145); Total Protein 7.7 g/dL (6.5-8.0)
== END 2023-05-12 11:55 | disposition home or self-care (01) ==
LOC: HO.HMGCLDS 11:54
PROVIDERS: PCP Hospitalist; Visit Provider Nurse Practitioner Family
DX: R42 Dizziness and giddiness (principal); R00.2 Palpitations
CPT/HCPCS: 36415; 80053; 85025

== ENCOUNTER 2023-10-25 00:53 | Emergency (ER) | payer OTHER, SELFPAY ==
[2023-10-25 01:32] VITALS: BP 132/88; PULSE 65; RESP 16; TEMP 36.4; O2SAT 97; BMI 27.3
[2023-10-25 02:23] LABS: IDNOW Serial# 152EDE1D; Influenza A Negative (Negative); Influenza B2 Negative (Negative)
[2023-10-25 02:24] LABS: COVID-19 Test Negative (Negative); IDNOW Serial# 08D9AD1C
== END 2023-10-25 04:28 | disposition left against medical advice (07) ==
PROVIDERS: Emergency Provider Emergency Medicine; PCP Hospitalist
DX: R21 Rash and other nonspecific skin eruption (principal); R05.9 Cough, unspecified; Z03.818 Encounter for observation for suspected exposure to other biological agents ruled out; Z53.21 Procedure and treatment not carried out due to patient leaving prior to being seen by health care provider
CPT/HCPCS: 87502; 87635; 99281; 99283

== ENCOUNTER 2023-10-28 10:10 | Outpatient (AMB) | payer OTHER, SELFPAY ==
[2023-10-28 10:14] VITALS: BP 116/64; PULSE 76; RESP 14; TEMP 36.1; O2SAT 99; BMI 27.7
--- NOTE | 2023-10-28 10:14 | A.OFFPC_ITS ---
Vital Signs 10/28/23 10:14 Height 5 ft 11 in Weight 198 lb 8 oz BMI 27.7 BP 116/64 Blood Pressure Location Rt brachial Position Sitting Respiration 14 Pulse 76 Pulse Source Pulse Oximeter Temp 97 F Temp Source Temporal Artery Scan Pulse Oximetry (%) 99 Oxygen Delivery Method Room Air Intake Visit Reasons: PE Public Policy Analyst Required: No Accompanied by: Self / Same As Patient Allergies diphenhydramine [From BENADRYL] Adverse Reaction (Unknown, Verified 10/28/23 10:32) UNKNOWN Tobacco use date assessed: 10/28/23 Dental Screening Dental Screen Date: 10/28/23 Did you have a dental visit in the last 12 months?: Yes Did you have a dental problem in the last 6 months where you did not have access to dental care?: No Was dental information given to patient?: Patient has dentist HPI HPI Comments History of Present Illness Details 43-year-old male presents for an extende d physical exam He has history of IBS, excessive daytime sleepiness, palpitations, dyslipidemia, panic attack, anxiety, and depression He is currently not on prescription medications He admits to making healthy dietary choices and sleeping well. He does not exercise He notes that he went to [facility] on 10/25/2023 for upper respiratory symptoms and rash to his trunk and upper arm. However he left without seen, after waiting for a while. Covid/flu testing were negative. He notes that he the rash has been present for the past 3 weeks and improving. He has not been taking any medication for the rash; he notes that he believes in natural remedies. He admitted that he has been using a new laundry detergent before onset of rash, no new food or body products He was followed by [facility] Neurology, Gastroenterology, and Cardiology [facility] Medical History Colon spasm High cholesterol Depression Panic attack Surgical History History of bilateral inguinal hernia repair (01/26/18) History of appendectomy Family History Father Sepsis Myocardial infarction Mother HTN (hypertension) Hypothyroidism Brother HTN (hypertension) Sister Fibromyalgia Sister No problems noted. Maternal Grandfather Heart problem Maternal Grandmother Heart problem Diabetes mellitus Paternal Grandmother No problems noted. Paternal Grandfather No problems noted. Social History Household Members: None Household Members Other:: - process divorce Housing: House Alcohol intake: never Patient Tobacco Use Status: Former Tobacco user Years Smoked: 7 +/- e-Cigarette/Vaping Use: Never Used Second Hand Smoke Exposure: No service: No Current occupational status: unemployed and disabled Cognitive needs: No Hearing needs: No Vision needs: No Questionnaire PHQ-9 Over the last 2 weeks, how often have you been bothered by any of the following problems? 1. Little interest or pleasure in doing things: not at all 2. Feeling down, depressed, or hopeless: not at all 3. Trouble falling or staying asleep, or sleeping too much: not at all 4. Feeling tired or having little energy: not at all 5. Poor appetite or overeating: not at all 6. Feeling bad about yourself - or that you are a failure or have let yourself or your family down: not at all 7. Trouble concentrating on things, such as reading the newspaper or watching television: not at all 8. Moving or speaking so slowly that other people could have noticed. Or the opposite - being so fidgety or restless that you have been moving around a lot more than usual: not at all 9. Thoughts that you would be better off or of hurting yourself in some way: not at all Total score: 0 Depression Screening Interpretation: Negative Depression Screening Done: Yes 20864 - PHQ-9 Billing: Yes Source: Developed by Drs. Earle Mejia, Romy Rodriguez, Daron Ochoa and colleagues, with an educational isael from [employer]. Thrive Questionnaire Date Thrive assessed: 10/28/23 I am a: Patient What is your living situation today?: I have a steady place to live Within the past 12 months, did the food you bought not last and you didn't have the money to get more?: Often true Within the past 12 months, did you worry whether your food would run out before you got money to buy more?: Often true Do you have trouble paying for medicines?: No Do you have trouble getting transportation to medical appointments?: No Do you have trouble paying your heating and electricity bill?: Yes Do you have trouble taking care of your child, family member or friend?: No Do you have trouble with day-to-day activities such as bathing, preparing meals, shopping, managing finances, etc.?: No Are you currently unemployed and looking for a job?: No Are you interested in more education?: No Please select the resources that you would like help with: Food and Utilities Currently or been in a relationship where the following occur: no concerns reported THRIVE Score: 3 AUDIT C Alcohol Use Questionnaire (AUDIT-C) 1. How often do you have a drink containing alcohol?: Never 3. How often do you have six or more drinks on one occasion?: Never Total Score: 0 SAVANNAH-7 AMB Questionnaire SAVANNAH-7 Date SAVANNAH - 7 assessed: 10/28/23 Feeling nervous, anxious, or on edge: 0 = Not at all Not being able to stop or control worryin = Not at all Worrying too much about different things: 0 = Not at all Trouble relaxin = Not at all Being so restless that it is hard to sit still: 0 = Not at all Becoming easily annoyed or irritable: 0 = Not at all Feeling afraid as if something awful might happen: 0 = Not at all Total SAVANNAH-7 score (0-4 normal; 5-9 mild; 10-14 moderate; 15-21 severe): 0 Source: Developed by Drs. Earle Mejia, Romy Rodriguez, Daron Ochoa and colleagues, with an educational isael from [employer]. SAVANNAH-7 Assessment Billing SAVANNAH-7 Assessment Tool: SAVANNAH-7 Assessment 61411 Review of Systems Const Details: Denies chills, Denies fatigue, Denies fever(s), Denies headache(s) and Denies weakness HEENT Denies change in vision, Denies dizziness, Denies headache(s), Denies hearing loss, Denies nasal congestion, Denies sinus pain, Denies sinus pressure and Denies sore throat Card Denies chest pain, Denies lightheadedness, Denies dyspnea and Denies other (palpitations) Resp Denies cough, Denies dyspnea and Denies wheezing GI Denies abdominal pain, Denies melena, Denies hematochezia, Denies change in bowel habits, Denies dyspepsia and Denies nausea Denies hematuria and Denies dysuria Musc Denies abnormal gait, Denies myalgias, Denies arthralgias, Denies numbness and Denies tingling Skin/Breast Reports rash, Denies unusual bruising and Denies wounds Neuro Denies abnormal gait, Denies dizziness, Denies headache(s), Denies memory loss, Denies numbness, Denies Sensory deficit (Neuro), Denies tingling and Denies weakness Psych Denies anxiety, Denies depression and Denies memory loss Endo Denies cold intolerance, Denies fatigue, Denies heat intolerance, Denies polydipsia and Denies polyuria Barrington/Lymph Denies easy bleeding and Denies easy bruising Aller/Immun Denies wheezing Physical exam (Primary Care) Vital Signs: Last Vital Signs Temp 97 F 10/28/23 10:14 Pulse 76 10/28/23 10:14 Resp 14 10/28/23 10:14 BP 116/64 10/28/23 10:14 Pulse Ox 99 10/28/23 10:14 Oxygen Delivery Method Room Air 10/28/23 10:14 BMI result Body Mass Index 27.7 Tobacco/Smoking Status: Tobacco use Status Tobacco use date assessed 10/28/23 10/28/23 10:28 Patient Tobacco Use Status Former Tobacco user 10/28/23 10:28 e-Cigarette/Vaping Use Never Used 10/28/23 10:19 PHQ-9: PHQ-9 Score PHQ-9: Total score 0 10/28/23 10:28 Depression Screening Interpretation: Negative Thrive Assessment: Date of Thrive Assessment Date Thrive assessed 10/28/23 10/28/23 10:28 Currently or been in a relationship where the following occur: no concerns reported Const Other: General: no acute distress, well developed, alert and awake Nutritional Appearance: well nourished Orientation/consciousness: patient oriented x3 HENMT Head: Yes normocephalic and Yes atraumatic Ears: hearing grossly normal bilaterally and TM's normal bilaterally General nose exam: Normal external nose present and Normal nares present Mouth: Normal oral and palatal mucosa present and moist mucous membranes Teeth and gingiva: dentition normal Throat: Yes oropharynx normal Eyes Pupils: Equal, round and reactive pupils present and Pupil accommodation reflex normal EOM: EOMs intact bilaterally Neck Neck: Yes normal visual inspection, Yes no lymphadenopathy and Yes trachea midline Thyroid: Thyroid normal Carotids: no bruits Lymphatic: no lymphadenopathy noted Chest Chest palpation & inspection: normal inspection of the chest Resp Effort & Inspection: normal respiratory effort Auscultation: clear to auscultation bilaterally Cardio Rate: regular rate Rhythm: regular rhythm Heart sounds: S1 normal heart sound present, S2 normal heart sound present, no gallops, no murmurs and no rubs Bruits: no abdominal aortic bruits and no carotid bruits GI Palpation (GI): No Abdominal aortic bruit present, Soft to palpation, nontender, No hepatosplenomegaly present and No Rebound tenderness present Auscultation: normal bowel sounds General: Yes no CVA tenderness Back/Spine/Pelvis Back: no CVA tenderness Cervical Spine: cervical ROM normal and No Cervical spine tenderness Thoracic/Lumbar Spine: thoraco-lumbar ROM normal, No pain with thoraco-lumbar ROM, No thoracic spinal tenderness and No lumbar spinal tenderness Skin General: warm and dry. Normal skin color. Normal skin turgor Lesions: no lesions Rashes: Red, raised welts to anterior and posterior trunk and upper arms, consistent with you with urticaria Trauma: no lacerations or abrasions Wounds: no wounds Nails: normal Neuro General: patient oriented x3, gait normal and CN's II-XI intact bilaterally Cranial nerves: Yes Equal, round and reactive pupils present Cognition (Neuro): normal cognition Gait exam (Neuro): Normal gait present Motor exam (neuro): 5/5 motor strength present throughout Sensory Exam: No Sensory deficit (Neuro) Deep tendon reflexes (DTR's): Right patellar reflex intensity grade: 2+ and Left patellar reflex intensity grade: 2+ Extrem General: Yes normal to inspection, No edema and No calf tenderness Psych Appearance: grossly normal Affect: normal affect Attitude: cooperative Thought process: Normal thought process present Assessment and Plan Assessment & Plan (1) Physical exam: Code(s): Z00.00 - Encounter for general adult medical examination without abnormal findings Plan: No significant physical restrictions limitations noted Healthy diet and routine exercise encouraged Advised to get lab work done and follow-up in 2-3 weeks for telehealth visit for labs review Return sooner with symptoms or concerns Verbalized understanding and agreed with the treatment plan (2) Acute urticaria: Code(s): L50.8 - Other urticaria Plan: Itchy rash to anterior and posterior trunk and upper arms x 3 wks Red, raised welts to anterior and posterior trunk and upper arms, consistent with you with urticaria Likely due to contact with new laundry detergent. Advised to change laundry detergent He is allergic to Benadryl. Zyrtec 10 mg daily ordered. Take as prescribed Follow-up with worsening or new symptoms Verbalized understanding and agreed with treatment plan (3) Laboratory tests ordered as part of a complete physical exam (CPE): Code(s): Z00.00 - Encounter for general adult medical examination without abnormal findings Plan: Fasting labs ordered in preparation of a complete physical exam. Advised to fast for at least 10 hours before getting labs drawn. May drink water Verbalized understanding and agreed with treatment plan. Orders: Orders TSH reflex Free T4 Today Z00.00 - Encounter for general adult medical examination without abnormal findings UA CC w/rflx Micro + Cult Today Z00.00 - Encounter for general adult medical examination without abnormal findings PSA, Ultra Sensitive Today Z00.00 - Encounter for general adult medical examination without abnormal findings Medications: New cetirizine (Zyrtec) 10 mg PO DAILY 14 days 14 tabs 0RF Coding Level of Care Code Est Pt Level 4 (78654) Est Pt Prev Care 40-64y(17170) Diagnoses Physical exam Z00.00 Acute urticaria L50.8 Laboratory tests ordered as part of a complete physical exam (CPE) Z00.00 Additional Codes SAVANNAH-7 Assessment Billing - SAVANNAH-7 Assessment Tool: SAVANNAH-7 Assessment [id number] ([id number])
== END 2023-10-28 11:04 | disposition home or self-care (01) ==
PROVIDERS: PCP Hospitalist; Visit Provider Nurse Practitioner Family
DX: Z00.00 Encounter for general adult medical examination without abnormal findings (principal); L50.8 Other urticaria
CPT/HCPCS: 99213; 99396

== ENCOUNTER 2023-10-28 11:08 | Outpatient (REF) | payer OTHER, SELFPAY ==
[2023-10-28 14:44] LABS: Appearance Urine Turbid; Color Urine Yellow; Glucose Urine UA Negative (Negative); Leukocyte Esterase Urine Negative (Negative); Nitrite Urine Negative (Negative); PH 5.5 (5.0-9.0); Specific Gravity - Urine 1.025 (1.005-1.025); Urine Blood Negative (Negative); Urine Ketones Negative (Negative); Urine Protein Negative (Neg-Trace)
[2023-10-28 15:00] LABS: Hematocrit 45.4 % (42.0-52.0); Hemoglobin 15.4 g/dl (14.0-18.0); Mean Corpuscular HGB Conc 33.9 g/dl (31.0-36.0); Mean Corpuscular Hemoglobin 29.3 pg (27.0-33.0); Mean Corpuscular Volume 86.5 fL (80.0-98.0); Mean Platelet Volume 9.4 fL (9.4-12.4); Platelet Count 333 X10*3/uL (160-400); Red Blood Count 5.25 X10*6/uL (4.60-5.80); Red Cell Distribution Width 12.8 % (11.0-16.0); White Blood Count 8.5 X10*3/uL (4.8-10.8)
[2023-10-28 15:58] LABS: Alanine Aminotransferase 21 U/L (0-40); Albumin Level 4.3 g/dL (3.5-5.0); Alkaline Phosphatase 70 U/L (39-117); Anion Gap 11 (12-20); Aspartate Amino Transferase 16 U/L (5-37); Bilirubin Total 0.4 mg/dL (0.0-1.0); Blood Urea Nitrogen 12 mg/dL (9-16); Calcium 9.5 mg/dL (8.4-10.2); Carbon Dioxide 28 mmol/L (22-29); Chloride 105 mmol/L (96-108); Cholesterol 236 mg/dL (<200); Estimated Glomerular Filt Rate > 60; Glucose Fasting 97 mg/dL (60-99); HDL Cholesterol 38 mg/dL (>40); LDL Cholesterol Calculated 163 mg/dL (<100); Sodium 140 mmol/L (135-145); Total Protein 7.6 g/dL (6.5-8.0); Triglycerides 176 mg/dL (<150)
[2023-11-04 20:03] LABS: PSA, Ultra Sensitive 1.31 ng/mL
== END 2023-10-28 11:09 | disposition home or self-care (01) ==
LOC: HO.WFDLDS 11:08
PROVIDERS: Visit Provider Nurse Practitioner Family
DX: Z00.00 Encounter for general adult medical examination without abnormal findings (principal); Z12.5 Encounter for screening for malignant neoplasm of prostate; E78.5 Hyperlipidemia, unspecified
CPT/HCPCS: 36415; 80053; 80061; 81003; 84153; 84443; 85027

== ENCOUNTER 2024-04-14 13:09 | Outpatient (AMB) | payer OTHER, SELFPAY ==
[2024-04-14 13:10] VITALS: BP 118/70; PULSE 77; TEMP 36.6; O2SAT 98; BMI 27.6
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
== END 2024-04-14 13:43 | disposition home or self-care (01) ==
PROVIDERS: PCP Hospitalist; Visit Provider Physician Assistant
DX: J01.80 Other acute sinusitis (principal); K58.9 Irritable bowel syndrome, unspecified

== ENCOUNTER → 2024-04-14 13:09 | Outpatient (BNVA) | payer OTHER, SELFPAY | PROVIDERS: PCP Hospitalist; Visit Provider Physician Assistant | DX: J01.80 Other acute sinusitis (principal); K58.9 Irritable bowel syndrome, unspecified | CPT/HCPCS: 99212 ==

== ENCOUNTER 2024-09-13 09:54 | Outpatient (AMB) | payer OTHER, SELFPAY ==
--- NOTE | 2024-09-13 09:51 | A.OFFPC_ITS ---
Intake Visit Reasons: going over lab work/possible referrals Intake Note: patient here for telehealth follow up to go over labs and talk about referral Physical Optics Teacher Required: No Allergies diphenhydramine [From BENADRYL] Adverse Reaction (Unknown, Verified 09/13/24 10:55) UNKNOWN Benadryl Allergy (Unknown, Uncoded 09/13/24 10:55) Unknown Medication List - Last Reconciled 09/13/24 by Kareem Arias CNP No Known Home Meds Tobacco use date assessed: 09/13/24 Dental Screening Dental Screen Date: 09/13/24 Did you have a dental visit in the last 12 months?: Yes Did you have a dental problem in the last 6 months where you did not have access to dental care?: No Was dental information given to patient?: Patient has dentist HPI HPI Comments History of Present Illness Details 44-year-old male presents for telehealth visit for review of recent lab results. He reports intermittent abdominal discomfort and bloating with eating red meat and certain foods. He attributes his symptoms to history of IBS and diverticulosis. He is followed by [facility]ology but has not seen them since 2022; he plans to call and schedule an appointment with them. He has been making healthy dietary choices. He is active but does not exercise. He denies acute symptoms at this time. [facility] Medical History Colon spasm High cholesterol Depression Panic attack Surgical History History of bilateral inguinal hernia repair (01/26/18) History of appendectomy Family History Father Sepsis Myocardial infarction Mother HTN (hypertension) Hypothyroidism Brother HTN (hypertension) Sister Fibromyalgia Sister No problems noted. Maternal Grandfather Heart problem Maternal Grandmother Heart problem Diabetes mellitus Paternal Grandmother No problems noted. Paternal Grandfather No problems noted. Social History (System 08/27/24 @ 14:51 by Candi Andujar CNA) Household Members: None Household Members Other:: - process divorce Housing: House Alcohol intake: never Patient Tobacco Use Status: Former Tobacco user Years Smoked: 7 +/- e-Cigarette/Vaping Use: Never Used Second Hand Smoke Exposure: No service: No Current occupational status: unemployed and disabled Cognitive needs: No Hearing needs: No Vision needs: No Questionnaire Thrive Questionnaire Date Thrive assessed: 10/28/23 SAVANNAH-7 AMB Questionnaire SAVANNAH-7 Date SAVANNAH - 7 assessed: 10/28/23 Source: Developed by Drs. Earle Mejia, Romy Rodriguez, Draon Ochoa and colleagues, with an educational isael from [employer]. Review of Systems Const Details: Denies chills, Denies fatigue, Denies fever(s), Denies headache(s) and Denies weakness Cardiac Denies chest pain, Denies claudication, Denies leg edema, Denies lightheadedness, Denies palpitations, Denies dyspnea, Denies dyspnea on exertion, Denies orthopnea and Denies other (Loss of consciousness) Resp Denies cough, Denies excessive phlegm production, Denies dyspnea, Denies dyspnea on exertion, Denies snoring and Denies wheezing Physical exam (Primary Care) Tobacco/Smoking Status: Tobacco use Status Tobacco use date assessed 09/13/24 09/13/24 09:53 Patient Tobacco Use Status Former Tobacco user 09/13/24 09:53 e-Cigarette/Vaping Use Never Used 09/13/24 09:53 Thrive Assessment: Date of Thrive Assessment Date Thrive assessed 10/28/23 09/13/24 09:53 Const Other: Patient is alert and oriented x3. Telehealth Telehealth Telehealth Platform: Telephone Location of provider rendering services: practice address Location of patient: address on file Patient Identification confirmed using: Name, : Yes Telehealth method: voice only Patient verbally consented to treatment: Yes Patient verbally consented to billing insurance company: Yes Patient informed of any privacy concerns related to visit: Yes Coding Level of Care Code Tele New Pt Level 3 (08349) Diagnoses Hyperlipidemia E78.5 Laboratory tests ordered as part of a complete physical exam (CPE) Z00.00 Irritable bowel syndrome, unspecified type K58.9 Irritable bowel syndrome type: unspecified Diverticulosis K57.90 Time Spent (min) 15 Assessment & Plan Assessment & Plan (1) Hyperlipidemia: Code(s): E78.5 - Hyperlipidemia, unspecified Category: Medical Plan: Recent triglycerides, total cholesterol, and LDL levels in 10/28/2023 were elevated, 176, 236, and 163 respectively, HDL level was slightly low, 38. Advised to limit foods high in saturated fat and avoid foods high in trans fat. Routine exercise encouraged. Advised to fast for 10-12 hours, may drink water, and performed lipid panel blood work before next visit. Follow-up for an extended physical exam as planned. Return sooner with symptoms or concerns. Verbalized understanding and agreed with treatment plan. (2) Laboratory tests ordered as part of a complete physical exam (CPE): Code(s): Z00.00 - Encounter for general adult medical examination without abnormal findings Category: Medical Plan: Fasting labs ordered as part of a complete physical exam. Advised to fast for at least 10 hours before getting labs drawn. May drink water Verbalized understanding and agreed with treatment plan. (3) IBS (irritable bowel syndrome): Code(s): K58.9 - Irritable bowel syndrome, unspecified Category: Medical Qualifiers: Irritable bowel syndrome type: unspecified Qualified Code(s): K58.9 - Irritable bowel syndrome, unspecified Plan: No acute symptoms at this time. Healthy diet and routine exercise encouraged. He will call and schedule an appointment with [facility] gastroenterology. (4) Diverticulosis: Code(s): K57.90 - Diverticulosis of intestine, part unspecified, without perforation or abscess without bleeding Category: Medical Plan: Plan as above. Orders: Orders Comprehensive [place]. Panel Fast Today Z00.00 - Encounter for general adult medical examination without abnormal findings Vitamin D 25-OH Total Today Z00.00 - Encounter for general adult medical examination without abnormal findings Complete Blood Count Auto Diff Today Z00.00 - Encounter for general adult medical examination without abnormal findings Lipid Panel Today Z00.00 - Encounter for general adult medical examination without abnormal findings TSH reflex Free T4 Today Z00.00 - Encounter for general adult medical examination without abnormal findings UA CC w/rflx Micro + Cult Today Z00.00 - Encounter for general adult medical examination without abnormal findings
--- OUTSIDE RECORDS SUMMARY | 2024-09-13 11:04 | XMS_ITS | Data Portability ---
Author Organization [facility], [address] Address [address] [place] [address] Assessment No assessment recorded. Plan of Treatment Reminders Order Date Submit Date Provider Last Modified By Organization Details Last Modified Time Details Appointments None recorded. Lab rapid SARS CoV 2 Ag, QL IA, respiratory specimen 2021 022 [email or web address] 1 [facility], [address] [place] [address], [phone], 2 20:21:48 rapid flu (A+B) 2021 022 [email or web address] 1 _[facility], [address] [place] [address], [phone], 2 20:21:48 Referral otolaryngol ogist referral - chronic sinusitis , failing conservativ e treatment , worried abot deviated septum . need further evaluation and treatment. 2022 023 [email or web address] 26 Bao Cedillo MD, [address], [address], [place], [address], 3 08:38:25 Procedures None recorded. Surgeries None recorded. Imaging None recorded. Medication Orders Augmentin 875 mg-125 mg tablet 2022 023 ASAD [id number], [address] [place], [address], 3 19:15:40 Patient TargetsNo targets recorded. Patient Instructions Encounter Date Encounter Id Patient Instructions Last Modified By Organization Details Last Modified Time 05/23/2022 [id number] cough: care instructions [email or web address] Not available 05/23/2022 20:21:48 viral respirator y infection: care instructions [email or web address] Not available 05/23/2022 20:21:48 08/22/2022 [id number] Acute Sinusitis: Care Instructions Not available 08/22/2022 19:15:37 Sinusitis is an infection of the lining of the sinus cavities in your head. Sinusitis often follows a cold. It causes pain and pressure in your head and face. In most cases, sinusitis gets better on its own in 1 to 2 weeks. But some mild symptoms may last for several weeks. Sometimes antibiotics are needed. if you are having problems. It's also a good idea to know your test results and keep a list of the medicines you take. How can you care for yourself at home? Take an fgsk-cbh-rcdyxlo pain medicine. Avoid Ibuprofen, Aleve and Aspirin if . If the doctor prescribed antibiotics, take them as directed. Do not stop taking them just because you feel better. You need to take the full course of antibiotics. Be careful when taking nzji-yrc-maukkeq cold or influenza (flu) medicines and Tylenol at the same time. Many of these medicines have acetaminophen, which is Tylenol. Read the labels to make sure that you are not taking more than the recommended dose. Too much acetaminophen (Tylenol) can be harmful. Breathe warm, moist air from a steamy shower, a hot bath, or a sink filled with hot water. Avoid cold, dry air. Using a humidifier in your home may help. Follow the directions for cleaning the machine. Use saline (saltwater) nasal washes. This can help keep your nasal passages open and wash out mucus and bacteria. You can buy saline nose drops at a grocery store or drugstore. Or you can make your own at home by adding 1 teaspoon (5 millilitres) of salt and 1 teaspoon (5 millilitres) of baking soda to 2 cups (500 mL) of distilled water. If you make your own, fill a bulb syringe with the solution, insert the tip into your nostril, and squeeze gently. Blow your nose. Put a hot, wet towel or a warm gel pack on your face 3 or 4 times a day for 5 to 10 minutes each time. Try a decongestant nasal spray like oxymetazoline (Drixoral). Do not use it for more than 3 days in a row. Using it for more than 3 days can make your congestion worse. 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 need further maurilio chronic sinusitis , failing conservative treatment , worried abot deviated septum . need further evaluation and treatment. Referring Physician: Quinn Lundberg, Urgent Care, Encounter Date: 08/22/2022 Results Created Date Observation Date Name Description Value Unit Range Abnormal Flag Note LastModifiedBy Organization Detail LastModifiedTime 05/23/20 22 05/23/2022 rapid flu (A+B) Unknown Analyte Normal = Negati ve Not Available [address], [phone], 05/23/2022 19:34:54 05/23/20 22 05/23/2022 rapid flu (A+B) Unknown Analyte Normal = Negati ve Not Available [address] [place] [address], [phone], 05/23/2022 19:34:54 05/23/20 22 05/23/2022 rapid flu (A+B) Unknown Analyte negati ve Not Available [address] [place] [address], [phone], 05/23/2022 19:34:54 05/23/20 22 05/23/2022 rapid flu (A+B) Unknown Analyte negati ve Not Available [address] [place] [address], [phone], 05/23/2022 19:34:54 05/23/20 22 05/23/2022 rapid SARS CoV 2 Ag, QL IA, respi rator y speci men Unknown Analyte Normal =Negat luan Not Available [address], [address], 05/23/2022 19:34:46 05/23/2005/23/2022 rapid SARS CoV 2 Ag, QL IA, respi rator y speci men Unknown Analyte negati ve Not Available [facility] [address], [address], 05/23/2022 19:34:46 Result Notes None recorded. Problems No Known Problems Procedures Surgical History Date Name Laterality Status Provider Name and Address Organization Details Recorded Time appendectomy completed ORLY Pierre - [facility] 05/23/2022 19:35:01 Imaging Results None recorded. Procedure Notes None recorded. Medical Equipment None Reported. Allergies Allergen ID Allergen Name Allergen Category Reaction Reaction Severity Criticality Documentation Date Start Date Code Code System Note Provider Name and Address Organization Details Recorded Time 87382 Benadryl medicatio n Not available Not available Not available 05/23/202254171 7 RxNorm NAE Loera - [facility] 19:33:33 Medications Name Sig Start Date Stop Date Status Note LastModified by Organization Details LastModified Time trazodone 50 mg tablet TAKE 1 TABLET BY MOUTH EVERY DAY AT BEDTIME 05/23 completed Not Available Not Available Not Available azithromyci n 250 mg tablet TAKE 2 TABLETS BY MOUTH TODAY, THEN TAKE 1 TABLET DAILY FOR 4 DAYS 05/23 completed Not Available Not Available Not Available clonazepam 0.5 mg tablet TAKE 1 TABLET BY MOUTH ONCE A DAY NEEDED FOR ANXIETY 05/23 completed Not Available Not Available Not Available meclizine 12.5 mg tablet TAKE 2 TABLETS BY MOUTH 2 TIMES PER DAY NEEDED 05/23 completed Not Available Not Available Not Available ketorolac 10 mg tablet TAKE 1 TABLET ORALLY EVERY 6 HOURS NEEDED FOR SEVERE PAIN (7-10) 05/23 completed Not Available Not Available Not Available dicyclomine 20 mg tablet TAKE 1 TABLET BY MOUTH THREE TIMES A DAY 05/23 completed Not Available Not Available Not Available hydroxyzine HCl 25 mg tablet TAKE 1 TABLET BY MOUTH 2 TIMES A DAY NEEDED FOR ITCHING FOR 3 DAYS active Not Available Not Available No t Available ondansetron 4 mg disintegrat ing tablet DISSOLVE ONE TABLET ORALLY EVERY 8 HOURS NEEDED FOR NAUSEA/VO MITING 05/23 completed Not Available Not Available Not Available fluticasone propionate 50 mcg/actuati on nasal spray,suspe nsion 1 SPRAY INTRANASA LLY EVERY 12 HOURS FOR 30 DAYS ADMINISTE R INTO EACH NOSTRIL active Not Available Not Available No t Available dicyclomine 10 mg capsule TAKE 1 CAPSULE BY MOUTH 4 TIMES A DAY NEEDED FOR SPASMS 05/23 completed Not Available Not Available Not Available loratadine 10 mg tablet TAKE 1 TABLET BY MOUTH DAILY 05/23 completed Not Available Not Available Not Available amoxicillin 875 mg-potassiu m clavulanate 125 mg tablet TAKE 1 TABLET BY MOUTH EVERY 12 HOURS WITH MEALS FOR 10 DAYS active Not Available Not Available No t Available hydroxyzine pamoate 25 mg capsule TAKE 1 CAPSULE BY MOUTH 3 TIMES A DAY NEEDED FOR ANXIETY 05/23 completed Not Available Not Available Not Available rosuvastati n 5 mg tablet TAKE 1 TABLET BY MOUTH AT BEDTIME active Not Available Not Available No t Available Fiber Therapy (methylcell ulose) 500 mg tablet TAKE 1 TABLET BY MOUTH 3 TIMES A DAY 05/23 completed Not Available Not Available Not Available Flowflex COVID-19 Antigen Home Test kit TEST DIRECTED active Not Available Not Available No t Available Paxlovid 150 mg-100 mg tablets in a dose pack (Renal Dose) TAKE 2 TABLETS BY MOUTH TWICE A DAY FOR 5 DAYS 05/23 completed Not Available Not Available Not Available Vitals Date Recorded Body height Body mass index (BMI) Body weight Oxygen saturation Oxygen saturation in Arterial blood by Pulse oximetry Heart rate Respiratory rate Body temperature Systolic blood pressure Diastolic blood pressure Provider Name and Address Organization Details Last Updated DateTime 3 180.34 cm 26.5 kg/m2 84719.5 5 g 97 % 97 % 80 /min 18 /min 98.4 [degF] 118 mm[Hg] 77 mm[Hg] ORLY Warner PA - [facility] 3 18:51:42 Date Recorded Body height Body mass index (BMI) Body weight Body temperature Respiratory rate Heart rate Oxygen saturation Oxygen saturation in Arterial blood by Pulse oximetry Systolic blood pressure Diastolic blood pressure Provider Name and Address Organization Details Last Updated DateTime 180.34 cm 26.1 kg/m2 00803.7 7 g 98 [degF] 18 /min 82 /min 97 % 97 % 109 mm[Hg] 71 mm[Hg] ORLY LESLYOMER Warner PA - [facility] 19:36:51 Social History Question Answer Notes LastModified by Organizat ion Details LastModified Time Tobacco Smoking Status Former Smoker ORLY rocha PA - [facility] 05/23/2022 19:35:32 What Is Your Level Of Alcohol Consumption? None Information not available 05/23/2022 What Is Your Water Source? City Information not available 05/23/2022 What Is Your Heat Source? Gas Information not available 05/23/2022 Have You Had Direct Contact, Or Contact During Intimacy, With Monkeypox Rash, Scabs, Or Body Fluids From A Person With Monkeypox? No Information not available 05/23/2022 Do You Use Any Illicit Or Recreational Drugs? No Information not available 05/23/2022 Have You Recently Traveled Abroad? No Information not available 05/23/2022 Do You Or Have You Ever Used Any Other Forms Of Tobacco Or Nicotine? No Information not available 05/23/2022 Sex: Unknown Functional Status None recorded. Mental Status None recorded. Family History Relationship Description Onset Age of this Age Resolved Age Notes LastModified by Organization Details LastModified Time Father No current problems or disability Not available 19:34:33 Mother No current problems or disability Not available 19:34:33 Medical History No medical history recorded. Past Encounters Encounter ID Performer Location Encounter Start Date Encounter Closed Date Diagnosis/Indication Diagnosis SNOMED-CT Code Diagnosis ICD10 Code Diagnosis Note [id number] [place] [address] [address] 05/23/2022 17:03:28 06/18/2022 11:38:31 Cough 41728532 R05.9 Viral uppe r respiratory tract infection 384480561 J06.9 If your symptoms worsen or persist you should be re-evaluat ed. Drink plenty of fluids Return to [facility] or see your primary care physician if your symptoms fail to improve in 5-7 days. You should follow up sooner if your symptoms worsen significan tly or if you develop new symptoms that concern you. If your symptoms are getting worse, or if you develop new symptoms that concern you, you should call 911 or go to the Emergency Department . [id number] Quinn [facility] [address] [address] [facility] [place] [address] 08/22/2022 16:10:54 08/22/2022 19:21:47 Chronic sinusitis 83294808 J32.9 Health Concerns Section Related Observation LastModified by Organization Detai ls LastModified Time None Recorded Concern Status LastModified by Organization Details LastModified Time None Recorded Advance Directives Directive None Recorded Payers Encounter Date Sequence Insurance Name Policy Number Policy Eid Covered Member ID Eid Member ID Guarantor Name 05/23/2022 1 [facility] (O) Rola Ocampo [id number] Rola Ocampo 08/22/2022 1 [facility] (MEDICAID HMO) Kolby Timmy [id number] Rola Ocampo Notes Date Note Type Note Provider Name and Address Organization Details Recorded Time 05/23/2022 text/html CoughReported bypatient.Quality:dry; intermittent; symptoms worse with lying down Severity:mild Duration:intermittent Associated Symptoms:no chills; no chest pain; no nausea; no vomiting;fever;post nasal drip started yest with congestion, dry cough from irritation in throat, today with fevers, aches. Takes natural things - found a Dr. Paulson's sinus plus on Virdia that works well for him DONNA RENE MD [address] [place], [address], PA - [facility] 05/23/2022 20:24:00 08/22/2022 text/html CongestionReport ed bypatient.Notes:nasal congestion with post nasal drip x on/off 1 year.. denies any fever or fever with chills. no SOB or respiratory distress. Quinn Lundberg NP [address] [place], [address], PA - [facility] 08/22/2022 19:16:39
== END 2024-09-13 11:07 | disposition home or self-care (01) ==
LOC: HO.HMCFM 09:54
PROVIDERS: PCP Hospitalist; Visit Provider Nurse Practitioner Family
DX: E78.5 Hyperlipidemia, unspecified (principal); K58.9 Irritable bowel syndrome, unspecified; K57.90 Diverticulosis of intestine, part unspecified, without perforation or abscess without bleeding

== ENCOUNTER → 2024-09-13 09:54 | Outpatient (BNVA) | payer OTHER, SELFPAY | PROVIDERS: PCP Hospitalist; Visit Provider Nurse Practitioner Family | DX: Z13.89 Encounter for screening for other disorder (principal) ==

== ENCOUNTER 2025-02-28 14:48 | Outpatient (AMB) | payer OTHER, SELFPAY ==
--- NOTE | 2025-02-28 14:51 | MHC.OFFWIV ---
Intake Vital Signs 02/28/25 14:52 Height 5 ft 11 in Weight 194 lb BMI 27.1 BP 120/80 Blood Pressure Location Lt brachial Position Sitting Pulse 89 Pulse Source Pulse Oximeter Temp 99.1 F Temp Source Oral Pulse Oximetry (%) 96 Oxygen Delivery Method Room Air Intake Visit Reasons: EP-body cramp, confusion, nauseas, sob, dizziness Intake Note: pt presents with concern for near fainting episode with nausea, nerves tingling, HR increased, hot/cold flashes, confusion yesterday during sex, has been experiencing lack of full erection for about 6 months. saw drop press hand yesterday, Patient Tobacco Use Status: Former Tobacco user Allergies diphenhydramine (From BENADRYL) Adverse Reaction (Unknown, Verified 02/28/25 14:55) UNKNOWN Do you need a note to return to daycare/school/sports/work: No HPI HPI Comments History of Present Illness Details 44 y/o Male patient who presents to the walk in clinic with multiple concerns; Pt reports for the past 6 months he has been having difficulties achieving and sustaining an erection during [place]. He has been in multiple dates with different women - has had few protected sexual encounters with different women. Reports using condoms sometimes. Recently he has been having unprotected intercourse with one female partner she is clean, no diseases . In the beginning he thought maybe it could be the condoms causing lack of erection. Pt reports that yesterday morning - he tried to have intercourse with his female partner but he was unable to achieve erection. He immediately started to feel Numbness (Upper arms), confusion, syncope, headaches, blurry vision and Nausea. He did call 911 and paramedics did arrive - he was checked out and released. His Fasting Sugar was 138. His vitals were WNL per Patient, so he declined admission. He endorses prior h/o T2DM - not clear if he had any Tx. According to the patient he changed his eating habits and lost weight. Pt does have h/o Panic attacks with Anxiety. He is currently not taking any medications or seeing therapist. He is willing to try therapy for now. Denies SI or SA. [facility] Medical History (Updated 02/28/25 @ 16:21 by Jessica Barnard NP) Erectile dysfunction Syncope Screening examination for STI Colon spasm High cholesterol Depression Panic attack Surgical History (System 08/27/24 @ 14:51 by Candi Andujar CNA) History of bilateral inguinal hernia repair (01/26/18) History of appendectomy Family History Father Sepsis Myocardial infarction Mother HTN (hypertension) Hypothyroidism Brother HTN (hypertension) Sister Fibromyalgia Sister No problems noted. Maternal Grandfather Heart problem Maternal Grandmother Heart problem Diabetes mellitus Paternal Grandmother No problems noted. Paternal Grandfather No problems noted. Social History (System 08/27/24 @ 14:51 by Candi Andujar CNA) Household Members: None Household Members Other:: - process divorce Housing: House Alcohol intake: never Patient Tobacco Use Status: Former Tobacco user Years Smoked: 7 +/- e-Cigarette/Vaping Use: Never Used Second Hand Smoke Exposure: No service: No Current occupational status: unemployed and disabled Cognitive needs: No Hearing needs: No Vision needs: No Review of Systems Const All systems reviewed & are unremarkable except as noted in HPI and below Physical Exam Vital Signs: Last Vital Signs Temp 99.1 F 02/28/25 14:52 Pulse 89 02/28/25 14:52 BP 120/80 02/28/25 14:52 Pulse Ox 96 02/28/25 14:52 Oxygen Delivery Method Room Air 02/28/25 14:52 BMI result Body Mass Index 27.1 Const General: cooperative, comfortable and no acute distress Nutritional Appearance: overweight Orientation/consciousness: patient oriented x3 Resp Effort & Inspection: normal respiratory effort Auscultation: clear to auscultation bilaterally Cardio Heart sounds: S1 normal heart sound present and S2 normal heart sound present Neuro General: patient oriented x3 Psych Speech and movement: Pressured speech present Affect: Anxious affect present Attitude: cooperative Judgement: Fair judgement present (Psych) Results AMB Hemoglobin A1c AMB Hemoglobin A1c 5.7 % Last Edit by Gisel Ballard MA on 02/28/25 16:46 AMB Urinalysis, Automated UA Leukoctes 0 Vandana/uL Last Edit by Gisel Ballard MA on 02/28/25 16:47 UA Nitrite Negative Last Edit by Gisel Ballard MA on 02/28/25 16:47 UA Urobilinogen 0.2 mg/dL Last Edit by Gisel Ballard MA on 02/28/25 16:47 UA Protein 0 mg/dL Last Edit by Gisel Ballard MA on 02/28/25 16:47 UA pH 6.0 Last Edit by Gisel Ballard MA on 02/28/25 16:47 UA Blood 0 Jose/uL Last Edit by Gisel Ballard MA on 02/28/25 16:47 UA Specific [place] 1.010 Last Edit by Gisel Ballard MA on 02/28/25 16:47 UA Ketone Negative Last Edit by Gisel Ballard MA on 02/28/25 16:47 UA Bilirubin 0 mg/dL Last Edit by Gisel Ballard MA on 02/28/25 16:47 UA Glucose 0 mg/dL Last Edit by Gisel Ballard MA on 02/28/25 16:47 Results Reviewed Results Reviewed: Laboratory Last Values Hgb A1c (Clinic) 5.7 % (4.0-6.0) 02/28/25 16:42 Urine pH (Auto) 6.0 02/28/25 16:42 Specific [place] (Auto) 1.010 02/28/25 16:42 Urine Protein (Auto) 0 mg/dL 02/28/25 16:42 Glucose (UA)(Auto) 0 mg/dL 02/28/25 16:42 Urine Ketones (Auto) Negative 02/28/25 16:42 Urine Blood (Auto) 0 Jose/uL 02/28/25 16:42 Urine Nitrite (Auto) Negative 02/28/25 16:42 Urine Bilirubin (Auto) 0 mg/dL 02/28/25 16:42 Urine Urobilinogen (Auto) 0.2 mg/dL 02/28/25 16:42 Leukocyte Esterase (Auto) 0 Vandana/uL 02/28/25 16:42 Assessment & Plan Assessment & Plan (1) Screening examination for STI: Code(s): Z11.3 - Encounter for screening for infections with a predominantly sexual mode of transmission Plan: Ordered CT/NG Declined Syphilis/HIV Educated on the importance of Safe Sex and use of Condoms all the times. He is Asymptomatic - Urinalysis negative. (2) Syncope: Code(s): R55 - Syncope and collapse Qualifiers: Encounter type: initial encounter Plan: ECG WNL A1C today 5.7% Probably he had a Panic attack due to inability to perform - symptoms consistent with Panic attack. Advised Lifestyle changes, weight loss, exercise. Warm Handoff with Nurse Navigator (Andie) - Therapy/Psych referral placed. (3) Erectile dysfunction: Code(s): N52.9 - Male erectile dysfunction, unspecified Qualifiers: Erectile dysfunction type: unspecified Qualified Code(s): N52.9 - Male erectile dysfunction, unspecified Plan: Probably he has Performance Anxiety due to previous inability of achieving Erection. Advised to F/u with Urology. Orders: Orders AMB Hemoglobin A1c Today Z13.9 - Encounter for screening, unspecified AMB EKG-In Office Today R55 - Syncope and collapse CT NG by PCR Urine Today Z11.3 - Encounter for screening for infections with a predominantly sexual mode of transmission AMB Urinalysis Automated Today Z13.9 - Encounter for screening, unspecified Coding Level of Care Code Est Pt Level 4 (07880) Diagnoses Screening examination for STI Z11.3 Syncope R55 Encounter type: initial encounter Erectile dysfunction, unspecified erectile dysfunction type N52.9 Erectile dysfunction type: unspecified Time Spent (min) 20
[2025-02-28 14:52] VITALS: BP 120/80; PULSE 89; TEMP 37.3; O2SAT 96; BMI 27.1
== END 2025-02-28 16:31 | disposition home or self-care (01) ==
PROVIDERS: PCP Nurse Practitioner Family; Visit Provider Nurse Practitioner Family
DX: Z11.3 Encounter for screening for infections with a predominantly sexual mode of transmission (principal); R55 Syncope and collapse; N52.9 Male erectile dysfunction, unspecified; Z13.9 Encounter for screening, unspecified

== ENCOUNTER 2025-02-28 14:48 | Outpatient (REF) | payer OTHER, SELFPAY ==
[2025-03-01 13:09] LABS: CT PCR Urine NOT DETECTED (Not Detect.); NG PCR Urine NOT DETECTED (Not Detect.)
== END 2025-02-28 14:49 | disposition home or self-care (01) ==
LOC: HO.LAB 14:48
PROVIDERS: Nurse Practitioner Family; PCP Nurse Practitioner Family; Visit Provider Nurse Practitioner Family
DX: N52.9 Male erectile dysfunction, unspecified (principal); R55 Syncope and collapse; Z20.2 Contact with and (suspected) exposure to infections with a predominantly sexual mode of transmission; Z13.89 Encounter for screening for other disorder
CPT/HCPCS: 81003; 83036; 87491; 87591; 99212